=== PATIENT | female | born 1995 | race Caucasian/White ===

== ENCOUNTER 2017-07-10 10:28 | Outpatient (CLI) | payer OTHER ==
[~2017-07-10] VITALS: Ht 165.1 cm; Wt 58.8 kg
[2017-07-10 10:47] VITALS: BP 111/65; PULSE 69; Ht 165.1 cm; Wt 58.8 kg
[2017-07-10] MEDS ORDERED: PNV11TAB PO (10:49)
--- NOTE | 2017-07-10 11:48 | PN ---
Triage Information Date/Time Reason for visit: vomiting blood and numbness of feet Weeks of Gestation 26 weeks /Para Diabetes: none Hypertention: none Objective Vital Signs Date Time Temp Pulse Resp B/P Pulse Ox O2 Delivery O2 Flow Rate FiO2 07/10/17 10:47 98.7 69 111/65 Heart Rate: 130's Heart Rate Comments Appropriate for GA Contractions: None Disposition: Assessment/Plan Transfer to ED for furhter evaluation. KIERSTEN ROMO MD Jul 10, 2017 11:48
[2017-07-10] MEDS ORDERED: ONDA4TAB8 PO (21:52)
[2017-07-10] MEDS ORDERED: ACET325T33 PO (21:52)
== END 2017-07-10 12:00 | disposition home or self-care (01) ==
LOC: OBT 10:28 → L-D 10:28 → OBT 12:00
PROVIDERS: ATTEND Obstetrics & Gynecology
DX: O21.2 Late vomiting of pregnancy (principal); Z3A.26 26 weeks gestation of pregnancy
CPT/HCPCS: G0463

== ENCOUNTER 2017-07-10 12:11 | Emergency (ER) | payer OTHER ==
[~2017-07-10] VITALS: Ht 157.5 cm; Wt 58.5 kg
[~2017-07-10 12:11] MED LIST: PNV11TAB PO
[2017-07-10 12:16] VITALS: Ht 157.5 cm; Wt 58.5 kg
[2017-07-10] MEDS ORDERED: ACETAMINOPHEN 325 MG TAB PO STA (13:57)
--- NOTE | 2017-07-10 14:22 | RADRPT ---
PROCEDURE: US Abdomen. CLINICAL INDICATION: Abdominal pain TECHNIQUE: Multiple real-time images were acquired of the patient's abdomen and right lower quadra nt utilizing a high resolution transducer. COMPARISON: None FINDINGS: The appendix is not visualized. There is normal bowel seen in the right lower abdomen. No free fluid is identified. RPTAT: AA IMPRESSION: No ultrasound evidence of appendicitis. If there is a high clinical suspicion for appendicitis, MRI is recommended. .Paul Byers MD, MD Date Time Electronically viewed and signed by .Paul Byers MD, on 07/10/2017 14:22 .S/
--- NOTE | 2017-07-10 14:42 | RADRPT ---
PROCEDURE: US OB. CLINICAL INDICATION: Abdominal pain TECHNIQUE: Multiple sonographic images of the pelvis were obtained. Transabdominal imaging only w as performed. The images were reviewed on a PACS workstation. COMPARISON: No prior studies are available for comparison. FINDINGS: There is a single live intrauterine gestation. Cardiac activity is present with 152 beats per minut e. position is breech. Measurements were made in order to determine age. The results are as follows: BPD = 6.24 cm HC = 23.2 cm AC = 20.92 cm FL = 4.65 cm. Estimated gestational age of approximately 25 weeks 4 days. The estimated date of delivery is 10/19/2017. The EFW = 816.4 g, 16 %ile. The placenta is posterior. There is no evidence for an abruption or placenta previa. There are no adnexal masses. IMPRESSION: 1. Single live intrauterine gestation of approximately 25 weeks 4 days, by ultrasound criteria. 2. The estimated date of delivery is 10/19/2017. 3. The estimated weight is 816.4 g, 16 %ile. 4. Breech presentation. RPTAT: HH .Carol Cabrales MD, Date Time Electronically viewed and signed by .Carol Cabrales MD, on 07/10/2017 14:41 .G/
[2017-07-10 14:51] LABS: BASOPHIL # 0.1 10^3/ul (0.0-0.1); BASOPHILS % 0.3 % (0.0-2.0); EOSINOPHILS # 0.3 10^3/ul (0.0-0.5); EOSINOPHILS % 1.8 % (0.0-7.0); HEMATOCRIT 40.6 % (37.0-47.0); HEMOGLOBIN 13.4 g/dl (12.0-16.0); LYMPHOCYTES # 3.2 10^3/ul (0.8-2.9); LYMPHOCYTES % 21.8 % (15.0-51.0); MEAN CORPUSCULAR HEMOGLOBIN 28.8 pg (29.0-33.0); MEAN CORPUSCULAR VOLUME 87.3 fl (82.0-101.0); MEAN PLATELET VOLUME 9.5 fl (7.4-10.4); MONOCYTE # 0.8 10^3/ul (0.3-0.9); MONOCYTES % 5.1 % (0.0-11.0); NEUTROPHIL # 10.3 10^3/ul (1.6-7.5); NEUTROPHILS % 70.6 % (39.0-77.0); PLATELET COUNT 239 10^3/UL (140-415); RED BLOOD COUNT 4.65 10^6/ul (4.20-5.40); RED CELL DISTRIBUTION WIDTH 13.2 % (11.5-14.5); WHITE BLOOD COUNT 14.7 10^3/ul (4.8-10.8)
--- NOTE | 2017-07-10 14:56 | ERA ---
ER Documentation Chief Complaint Date/Time DATE: 07/10/17 TIME: 14:54 Chief Complaint 26 WEEKS , CLEAR BY OBGYN, C/O NAUSEA AND WEAK LEGS HPI Otherwise healthy 21-year-old female who is 26 weeks presenting with a chief complaint of nausea and lower abdominal pain. Patient symptoms started 38 hours ago. Patient has not taken any medications to relieve the symptoms. Denies any aggravating or alleviating factors. Denies recent travel, unilateral leg swelling, shortness of breath, chest pain, headache, fever, similar symptoms in past. Patient also complains of weak legs. Symptoms have been progressing over the past 2-3 weeks that have currently resolved. ROS All systems reviewed and are negative except as per history of present illness. Medications Home Meds Reported Medications [id number] ( 19) 1 Each Tablet, 1 TAB PO DAILY, TAB 07/10/17 Discontinued Scripts Ondansetron Hcl* (Zofran*) 4 Mg Tablet, 4 MG PO Q6H for NAUSEA AND/OR VOMITING, #30 TAB Prov:KATHERINE CARRANZA PA-C 07/10/17 Acetaminophen* (Tylenol*) 325 Mg Tablet, 1 TAB PO Q6 Y for PAIN AND OR ELEVATED TEMP, #20 TAB Prov:KATHERINE CARRANZA PA-C 07/10/17 Allergies Allergies: Coded Allergies: No Known Allergy (Unverified , 07/10/17) PMhx/Soc History of Surgery: Yes (RIGHT EAR SURGERY) Anesthesia Reaction: No Hx Neurological Disorder: No Hx Respiratory Disorders: No Hx Cardiac Disorders: No Hx Psychiatric Problems: No Hx Miscellaneous Medical Probl: No Hx Alcohol Use: No Hx Substance Use: No Hx Tobacco Use: No Smoking Status: Never smoker Physical Exam Vitals Physical Exam Const: Healthy appearing 21-year-old female no acute distress Head: Atraumatic Eyes: Normal Conjunctiva. PERRLA, EOMI bilaterally. Ophthalmoscope exam unremarkable. ENT: Normal External Ears, Nose and Mouth. Neck: Full range of motion..~ No meningismus. Resp: Clear to auscultation bilaterally Cardio: Regular rate and rhythm, no murmurs Abd: Soft. Mild right lower quadrant tenderness in McBurney point area. No rebound tenderness. Positive psoas sign. Negative obturator and Rovsing's signs. Skin: No petechiae or rashes Back: No midline or flank tenderness Ext: No cyanosis, or edema. Neur: Awake and alert. Neurovascularly intact. Patellar reflexes 2+ bilaterally. Psych: Normal Mood and Affect Results 24 hrs Laboratory Tests Test 07/10/17 14:38 07/10/17 21:29 White Blood Count 14.710^3/ul Red Blood Count 4.6510^6/ul Hemoglobin 13.4g/dl Hematocrit 40.6% Mean Corpuscular Volume 87.3fl Mean Corpuscular Hemoglobin 28.8pg Mean Corpuscular Hemoglobin Concent 33.0g/dl Red Cell Distribution Width 13.2% Platelet Count 80209^3/UL Mean Platelet Volume 9.5fl Neutrophils % 70.6% Lymphocytes % 21.8% Monocytes % 5.1% Eosinophils % 1.8% Basophils % 0.3% Nucleated Red Blood Cells % 0.0/100WBC Neutrophils # 10.310^3/ul Lymphocytes # 3.210^3/ul Monocytes # 0.810^3/ul Eosinophils # 0.310^3/ul Basophils # 0.110^3/ul Nucleated Red Blood Cells # 0.010^3/ul Prothrombin Time 12.3Sec Prothrombin Time Ratio 1.0 INR International Normalized Ratio 0.91 Activated Partial Thromboplast Time 25.3Sec Sodium Level 138mmol/L Potassium Level 4.5mmol/L Chloride Level 104mmol/L Carbon Dioxide Level 26mmol/L Anion Gap 13 Blood Urea Nitrogen 7mg/dl Creatinine 0.72mg/dl Glucose Level 78mg/dl Calcium Level 10.7mg/dl Total Bilirubin 0.2mg/dl Direct Bilirubin 0.00mg/dl Indirect Bilirubin 0.2mg/dl Aspartate Amino Transf (AST/SGOT) 23IU/L Alanine Aminotransferase (ALT/SGPT) 26IU/L Alkaline Phosphatase 73IU/L Total Protein 8.5g/dl Albumin 4.2g/dl Globulin 4.30g/dl Albumin/Globulin Ratio 0.97 Beta HCG, Quantitative 54024.0mIU/ml Bedside Urine pH (LAB) 5.5 Bedside Urine Protein (LAB) 1+ Bedside Urine Glucose (UA) Negative Bedside Urine Ketones (LAB) 2+ Bedside Urine Blood Negative Bedside Urine Nitrite (LAB) Negative Bedside Urine Leukocyte Esterase (L Trace Current Medications Medications (Trade) Dose Ordered Sig/Hilario Route PRN Reason Start Time Stop Time Status Last Admin Dose Admin Acetaminophen (Tylenol Tab) 650 mg ONCE STAT PO 07/10/17 13:57 07/10/17 14:00 DC 07/10/17 14:32 Procedures/MDM Otherwise healthy 21-year-old female presenting with her boyfriend with a chief complaint of right lower quadrant abdominal pain nausea and vomiting 1-2 days as described in history and physical examination. Laboratories were taken and the results were as follows: CBC: WBC 14.7. Neutrophils 10.3. CMP: Calcium 10.7. PT/PTT: Within normal limits Urinalysis: Urinalysis: Trace leukocyte esterase. 1+ protein. Ultrasounds were obtained, read by the radiologist given the following impression: 1. Single live intrauterine gestation of approximately 25 weeks 4 days, by ultrasound criteria. 2. The estimated date of delivery is 10/19/2017. 3. The estimated weight is 816.4 g, 16 %ile. 4. Breech presentation. Abdominal ultrasound: No ultrasound evidence of appendicitis. If there is a high clinical suspicion for appendicitis, MRI is recommended. Spoke to my attending Dr. Neil who has recommended MRI. My current differential diagnosis includes but is not limited to following: Gastroenteritis , appendicitis, abdominal pain of unknown origin, among others. This case is now being handed Dr. Neil. Departure Diagnosis: Primary Impression: Abdominal pain affecting Additional Impression: Abdominal pain Qualified Code: R10.31 - Right lower quadrant abdominal pain Condition: Stable Additional Instructions: This case has been handed over to ADRIANO Hoskins PA-C Jul 10, 2017 14:56
[2017-07-10 15:08] LABS: INR 0.91; PARTIAL THROMBOPLASTIN TIME 25.3 Sec (25.0-35.0); PROTIME 12.3 Sec (12.2-14.2)
[2017-07-10 15:10] LABS: ALBUMIN 4.2 g/dl (3.3-4.9); ALBUMIN/GLOBULIN RATIO 0.97; BILIRUBIN,INDIRECT 0.2 mg/dl (0-1.1); BILIRUBIN,TOTAL 0.2 mg/dl (0.2-1.3); CALCIUM 10.7 mg/dl (8.4-10.2); CREATININE 0.72 mg/dl (0.44-1.00); POTASSIUM 4.5 mmol/L (3.5-5.1); TOTAL PROTEIN 8.5 g/dl (6.1-8.1)
[2017-07-10 19:00] VITALS: TEMP 98.3
--- NOTE | 2017-07-10 21:15 | RADRPT ---
PROCEDURE: MRI abdomen and pelvis without contrast CLINICAL INDICATION: 27 weeks evaluate appendix right lower quadrant pain times 1 day TECHNIQUE: MRI of the abdomen and pelvis without contrast was performed. COMPARISON: OB ultrasound and right lower quadrant ultrasound of 07/10/2017 FINDINGS: There is a gravid uterus. No definite inflammatory change suggestive of acute appendicitis is seen i n the right pelvis/lower quadrant of the abdomen. There is appearance of minimal right hydronephrosi s. No abnormality seen in the visualized liver, spleen, gallbladder, pancreas, left kidney or adrena ls. No biliary dilatation is seen. No definite abnormality of the stomach is seen. No abdominal aort ic aneurysm is seen. No definite abnormality of the bowel is seen. There is appearance of a very sma ll umbilical hernia containing fat only. No abnormality seen in bilateral maternal adnexal regions. No free intrapelvic fluid is seen. No abnormality of the bladder is seen. IMPRESSION: No evidence of acute appendicitis. Minimal right hydronephrosis. Otherwise unremarkable examination. RPTAT: HJES .Maciel Harding MD, MD Date Time Electronically viewed and signed by .Maciel Harding MD, on 07/10/2017 21:15 .S/
[2017-07-10 21:22] LABS: URINE BLOOD (Dip) POC Negative (NEGATIVE)
[2017-07-10 21:50] VITALS: BP 122/78; PULSE 75; RESP 20
[2017-07-10] MEDS ORDERED: ONDA4TAB8 PO (21:52)
[2017-07-10] MEDS ORDERED: ACET325T33 PO (21:52)
== END 2017-07-10 22:02 | disposition home or self-care (01) ==
LOC: FTE 12:11
DX: O26.892 Other specified pregnancy related conditions, second trimester (principal); R10.31 Right lower quadrant pain; R10.2 Pelvic and perineal pain; Z3A.25 25 weeks gestation of pregnancy
CPT/HCPCS: 72195; 74181; 76705; 76801; 80053; 81003; 84702; 85025; 85610; 85730; 86900; 86901; Z7502; Z7610

== ENCOUNTER 2017-07-17 16:12 | Inpatient (IN) | payer OTHER ==
[~2017-07-17] VITALS: Ht 165.1 cm; Wt 60.3 kg
[~2017-07-17 16:12] MED LIST changes: +ACET325T33 PO; +ONDA4TAB8 PO
[2017-07-17 16:38] VITALS: BP 111/59; PULSE 64; RESP 18; Ht 165.1 cm; Wt 60.3 kg
[2017-07-17 18:10] LABS: BASOPHILS % 0.4 % (0.0-2.0); EOSINOPHILS # 0.3 10^3/ul (0.0-0.5); EOSINOPHILS % 3.2 % (0.0-7.0); HEMATOCRIT 33.6 % (37.0-47.0); LYMPHOCYTES # 3.2 10^3/ul (0.8-2.9); LYMPHOCYTES % 30.1 % (15.0-51.0); MEAN CORPUSCULAR HEMOGLOBIN 28.9 pg (29.0-33.0); MEAN CORPUSCULAR HGB CONC 32.7 g/dl (32.0-37.0); MEAN CORPUSCULAR VOLUME 88.2 fl (82.0-101.0); MEAN PLATELET VOLUME 9.7 fl (7.4-10.4); MONOCYTE # 0.7 10^3/ul (0.3-0.9); MONOCYTES % 6.7 % (0.0-11.0); NEUTROPHIL # 6.3 10^3/ul (1.6-7.5); NEUTROPHILS % 59.2 % (39.0-77.0); PLATELET COUNT 194 10^3/UL (140-415); RED BLOOD COUNT 3.81 10^6/ul (4.20-5.40); WHITE BLOOD COUNT 10.6 10^3/ul (4.8-10.8)
[2017-07-17 18:25] LABS: ADD UMIC YES; UR ASCORBIC ACID NEGATIVE (NEGATIVE); UR BILIRUBIN (Dip) NEGATIVE (NEGATIVE); UR BLOOD (Dip) NEGATIVE (NEGATIVE); UR CLARITY CLEAR (CLEAR); UR COLOR STRAW (YELLOW); UR GLUCOSE (Dip) NEGATIVE (NEGATIVE); UR KETONES (Dip) NEGATIVE (NEGATIVE); UR LEUKOCYTE ESTERASE (Dip) 1+ Leu/ul (NEGATIVE); UR NITRITE (Dip) NEGATIVE (NEGATIVE); UR RBC 1 /HPF (0-5); UR SPECIFIC GRAVITY (Dip) 1.002 (1.003-1.030); UR SQUAMOUS EPITHELIAL CELL FEW /HPF (FEW); UR TOTAL PROTEIN (Dip) NEGATIVE (NEGATIVE); UR UROBILINOGEN (Dip) NEGATIVE (NEGATIVE)
--- NOTE | 2017-07-17 19:18 | RADRPT ---
PROCEDURE: Renal US. CLINICAL INDICATION: Unable to urinate TECHNIQUE: Multiple sonographic images of the kidneys and bladder were obtained. The images were reviewed on a PACS workstation. COMPARISON: MRI of 07/10/2017 FINDINGS: Right kidney measures 9.5 cm and the left kidney 11 cm in length. There is minimal right hydronephro sis. No left hydronephrosis is seen. No renal mass or calculus is seen bilaterally. No abnormality o f the bladder is seen. Gravid uterus. IMPRESSION: Minimal right hydronephrosis. Otherwise unremarkable examination. RPTAT: HJES .Maciel Harding MD, Date Time Electronically viewed and signed by .Maciel Harding MD, on 07/17/2017 19:18 .S/
[2017-07-17] MEDS: SOD CHLORIDE 0.9% 1,000 ML IV SCH (20:46)
[2017-07-17] MEDS: CEFTRIAXONE 1 GM/50 ML (PMX) 50 ML IVPB SCH (21:13)
[2017-07-18] MEDS: SOD CHLORIDE 0.9% 1,000 ML IV SCH ×2 (04:42→23:14)
[2017-07-18] MEDS: PRENATAL VITAMIN PO SCH (09:10)
--- NOTE | 2017-07-18 20:42 | HP ---
Date/Time of Note Date/Time of Note DATE: 07/18/17 TIME: 20:33 OB - History Hx of Present Chief Complaint: right flank pain Estimated Due Date: Oct 15, 2017 : 1 Para: 0 Spontaneous : 0 Therapeutic : 0 Care: Limited Care Ultrasounds: Normal mid trimester US Obstetrical Complications: None Medical Complications: None Past Family/Social History * Past Medical, Surgical, Family and Obstetric Histories reviewed from chart. OB Admission Exam Vital Signs Vital Signs Vital Signs Date Time Temp Pulse Resp B/P Pulse Ox O2 Delivery O2 Flow Rate FiO2 07/17/17 16:38 98.2 64 18 111/59 98 Room Air Physical Exam HEENT: WNL Heart: Rhythm Normal Lungs: Clear Abdomen: WNL Extremities: Normal Reflexes: Normal Cervical Dilatation: None Heart Rate: 140's Last 72 hours Lab Results CBC & BMP 07/17/17 17:52 OB Assessment/Plan Reason for admission: other Other Assessment: R/o pyelonephritis Plan: Other Other plan: Urine culture IV KIERSTEN Kaye MD Jul 18, 2017 20:41
[2017-07-18] MEDS: CEFTRIAXONE 1 GM/50 ML (PMX) 50 ML IVPB SCH (20:46)
[2017-07-19] MEDS: PRENATAL VITAMIN PO SCH (11:04)
--- NOTE | 2017-07-19 18:24 | DS ---
Date/Time of Note Date/Time of Note DATE: 07/19/17 TIME: 18:23 Obstetrical Discharge Record Final Diagnosis Final Diagnosis: not delivered Other Final Diagnosis pyelonephritis Condition on Discharge Physical Assessment Voiding: Yes Bowel Movement: Yes Calf Tenderness: No Patient Condition: Stable KIERSTEN ROMO MD Jul 19, 2017 18:24
== END 2017-07-19 18:40 | disposition home or self-care (01) | DRG 781 ==
LOC: OBT 16:12 → L-D 16:13 → OBG 19:59 → OBT 19:59
PROVIDERS: ADMIT Obstetrics & Gynecology; ATTEND Obstetrics & Gynecology
DX: O23.00 Infections of kidney in pregnancy, unspecified trimester (principal); Z3A.00 Weeks of gestation of pregnancy not specified
CPT/HCPCS: 76775; 81001; 85025; 87086; G0463; J0696; J7030

== ENCOUNTER 2017-08-01 13:22 | Outpatient (CLI) | payer OTHER ==
[~2017-08-01] VITALS: Ht 165.1 cm; Wt 60.5 kg
[~2017-08-01 13:22] MED LIST changes: -ACET325T33 PO; -ONDA4TAB8 PO
[2017-08-01 13:45] VITALS: BP 110/65; PULSE 96; RESP 20; BMI 22.2
[2017-08-01 14:05] VITALS: Ht 165.1 cm; Wt 60.5 kg
[2017-08-01 14:06] VITALS: BP 110/65; PULSE 96; RESP 18
[2017-08-01 14:08] LABS: ADD UMIC YES; UR ASCORBIC ACID NEGATIVE (NEGATIVE); UR BACTERIA FEW /HPF (NONE SEEN); UR BILIRUBIN (Dip) NEGATIVE (NEGATIVE); UR BLOOD (Dip) NEGATIVE (NEGATIVE); UR CLARITY SLIGHTLY CLOUDY (CLEAR); UR COLOR STRAW (YELLOW); UR GLUCOSE (Dip) NEGATIVE (NEGATIVE); UR KETONES (Dip) NEGATIVE (NEGATIVE); UR LEUKOCYTE ESTERASE (Dip) 3+ Leu/ul (NEGATIVE); UR NITRITE (Dip) NEGATIVE (NEGATIVE); UR RBC 1 /HPF (0-5); UR SPECIFIC GRAVITY (Dip) 1.002 (1.003-1.030); UR SQUAMOUS EPITHELIAL CELL FEW /HPF (FEW); UR TOTAL PROTEIN (Dip) NEGATIVE (NEGATIVE); UR UROBILINOGEN (Dip) NEGATIVE (NEGATIVE)
--- NOTE | 2017-08-01 14:44 | RADRPT ---
PROCEDURE: US OB biophysical profile. CLINICAL INDICATION: decreased movements, PTL TECHNIQUE: Multiple sonographic images of the pelvis were obtained. The images were reviewed on a PACS workstation. COMPARISON: 07/10/17 FINDINGS: There is a single viable intrauterine gestation. Cardiac activity is present with 140 beats per min ozzy. There is a breech presentation. The placenta is posterior. There is no evidence of placental abruption. There is a normal amount of amniotic fluid with an KAYLI = 13.5 cm. Biophysical profile: movement 2/2 tone 2/2. breathing 2/2 KAYLI 2/2 Total 05/22 RPTAT: AA . IMPRESSION: Normal biophysical profile. . .Paul Byers MD, MD Date Time Electronically viewed and signed by .Paul Byers MD, MD on 08/01/2017 14:44 .S/
--- NOTE | 2017-08-01 15:45 | RADRPT ---
PROCEDURE: Limited obstetric ultrasound CLINICAL INDICATION: Pain TECHNIQUE: Multiple transverse and longitudinal grayscale images of the pelvis were obtained ndiaye sabdominally and transvaginally.. COMPARISON: same day FINDINGS: The cervix is closed with a length of 3.4 cm. There is a single viable intrauterine gestation. Cardiac activity is present with 144 beats per min che[place]huevi. There is a breech , head maternal left presentation. The placenta is posterior. There is no evidence for an abruption or placenta previa. RPTAT: AA IMPRESSION: Cervix length measures 3.4 cm. .Paul Byers MD, Date Time Electronically viewed and signed by .Paul Byers MD, on 08/01/2017 15:45 .S/
--- NOTE | 2017-08-01 16:09 | TRIAGE ---
OB Triage Datetime Report Generated by CPN: 08/01/2017 16:08 Datetime: 08/01/2017 15:30 Stage of : OB Triage Maternal Assessment Level of Consciousness: Fully Conscious Labor Evaluation Frequency: NONE Monitor Mode: External Resting Tone [place]: Relaxed Heart Rate FHR Baseline Rate: 145 Monitor Mode: External US Variability: Moderate 6-25 bpm Accelerations: 15X15 Decelerations: None Pain Assessment Pain Scale: 7 Pain Goal: 3 Vaginal Exam Membrane Status: Intact Vaginal Bleeding: None Datetime: 08/01/2017 14:30 Stage of : OB Triage Maternal Assessment Level of Consciousness: Fully Conscious Labor Evaluation Frequency: NONE Monitor Mode: External Resting Tone [place]: Relaxed Heart Rate FHR Baseline Rate: 145 Monitor Mode: External US Variability: Moderate 6-25 bpm Accelerations: 15X15 Decelerations: None Category: Category I Pain Assessment Pain Scale: 7 Pain Goal: 3 Vaginal Exam Membrane Status: Intact Vaginal Bleeding: None Datetime: 08/01/2017 13:38 Stage of : OB Triage Assessment Type: Triage Maternal Assessment Level of Consciousness: Fully Conscious DTR's/Clonus: DTRs 2+; No Clonus Headache: Denies Blurred Vision: No Respiratory Effort: Unlabored; Regular Rhythm; Equal Expansion Breath Sounds, Left: Clear and Equal Breath Sounds, Right: Clear and Equal Nausea/Vomiting: Denies RUQ Epigastric Pain: Denies Lower Extremities Edema: None Degree: None Upper Extremities Edema: None Degree: None Facial Edema: None Temperature Route: Axillary Fall Risk Assessment History of Falling: (0) No Secondary Diagnosis: (0) No Ambulatory Aid: (0) Bedrest/Nurse Assist IV Therapy: (0) No Gait: (0) Normal/Bedrest/Immobile Mental Status: (0) Oriented to Own Ability Fall Score: 0 Fall Risk Score Definition: No Risk: No action required Datetime: 08/01/2017 13:35 Pain Assessment Pain Scale: 7 Pain Presence: Constant Pain Type: Dull Pain Location: Abdomen Pain Goal: 2 Pain Relief Measures: Comfort Measures Datetime: 08/01/2017 13:33 Monitor Mode: External Monitor Mode: External US Datetime: 07/19/2017 18:53 Time of Arrival: 08/01/2017 13:15 EGA: 29.2 Arrived By: Ambulatory Arrived From: Home Chief Complaint: CONTRACTIONS X2; WEAKNESS AND LIGAMENT PAIN ON LEFT SIDE Movement: Present Contractions: Occasional Rupture of Membranes: Denies Vaginal Bleeding: None Vaginal Discharge: Denies Recent Sexual Intercouse: Denies Abdominal Trauma: Not Applicable Patient Complaints: None Time Provider Notified: 08/01/2017 14:40 Provider Notified: DELSHAD Initial Plan: NST/UA/CVL Datetime: 07/19/2017 08:33 Labor Evaluation Frequency: 1 with irritability Monitor Mode: External Quality: Mild Resting Tone [place]: Relaxed Contraction Comments: pt denies feeling cramping , contractions, pain, leaking of fluid or blood f rom vagina Heart Rate FHR Baseline Rate: 130 Monitor Mode: External US FHR Baseline Changes: No Baseline Change Variability: Moderate 6-25 bpm Accelerations: 15X15 Decelerations: None Category: Category I Datetime: 07/19/2017 07:50 Pain Presence: None/Denies Datetime: 07/19/2017 07:28 Assessment Type: Ongoing Assessment Maternal Assessment Level of Consciousness: Fully Conscious DTR's/Clonus: DTRs 2+; No Clonus Headache: Denies Blurred Vision: No Respiratory Effort: Unlabored; Regular Rhythm; Equal Expansion Breath Sounds, Left: Clear and Equal Breath Sounds, Right: Clear and Equal Nausea/Vomiting: Denies RUQ Epigastric Pain: Denies Facial Edema: None Fall Risk Assessment History of Falling: (0) No Secondary Diagnosis: (0) No Ambulatory Aid: (0) Bedrest/Nurse Assist IV Therapy: (20) Yes Gait: (0) Normal/Bedrest/Immobile Mental Status: (0) Oriented to Own Ability Fall Score: 20 Fall Risk Score Definition: No Risk: No action required Datetime: 07/18/2017 21:36 Labor Evaluation Frequency: 0 Monitor Mode: External Resting Tone [place]: Relaxed Heart Rate FHR Baseline Rate: 145 Monitor Mode: External US Variability: Moderate 6-25 bpm Accelerations: 15X15 Decelerations: Variable Category: Category II Comments: nst done reactive strip. Pain Presence: None/Denies Datetime: 07/18/2017 20:48 Monitor Mode: External Contraction Comments: placed nst started. Monitor Mode: External US Comments: placed nst started. Datetime: 07/18/2017 19:32 Stage of : Antepartum Assessment Type: Ongoing Assessment Maternal Assessment Level of Consciousness: Fully Conscious DTR's/Clonus: DTRs 2+; No Clonus Headache: Denies Blurred Vision: No Respiratory Effort: Unlabored; Regular Rhythm; Equal Expansion Breath Sounds, Left: Clear and Equal Breath Sounds, Right: Clear and Equal Nausea/Vomiting: Denies RUQ Epigastric Pain: Denies Lower Extremities Edema: None Degree: None Upper Extremities Edema: None Degree: None Facial Edema: None Temperature Route: Oral Fall Risk Assessment History of Falling: (0) No Secondary Diagnosis: (0) No Ambulatory Aid: (0) Bedrest/Nurse Assist IV Therapy: (0) No Gait: (0) Normal/Bedrest/Immobile Mental Status: (0) Oriented to Own Ability Fall Score: 0 Fall Risk Score Definition: No Risk: No action required Pain Presence: None/Denies Datetime: 07/18/2017 18:11 Stage of : Antepartum Pain Assessment Pain Scale: 0 Pain Presence: Intermittent Pain Type: Ache Pain Location: Right Flank Pain Goal: 2 Pain Relief Measures: Comfort Measures Datetime: 07/18/2017 17:39 Stage of : Antepartum Pain Assessment Pain Scale: 0 Pain Presence: Intermittent Pain Type: Ache Pain Location: Right Flank Pain Goal: 2 Pain Relief Measures: Comfort Measures Datetime: 07/18/2017 16:00 Stage of : Antepartum Pain Assessment Pain Scale: 0 Pain Presence: Intermittent Pain Type: Ache Pain Location: Right Flank Pain Goal: 2 Pain Relief Measures: Comfort Measures Datetime: 07/18/2017 15:07 Stage of : Antepartum Pain Assessment Pain Scale: 0 Pain Presence: Intermittent Pain Type: Ache Pain Location: Right Flank Pain Goal: 4 Pain Relief Measures: Comfort Measures Datetime: 07/18/2017 14:00 Stage of : Antepartum Pain Assessment Pain Scale: 0 Pain Presence: Intermittent Pain Type: Ache Pain Location: Right Flank Pain Goal: 4 Pain Relief Measures: Comfort Measures Datetime: 07/18/2017 13:16 Stage of : Antepartum Pain Assessment Pain Scale: 0 Pain Presence: Intermittent Pain Type: Ache Pain Location: Right Flank Pain Goal: 5 Pain Relief Measures: Comfort Measures Datetime: 07/18/2017 12:09 Stage of : Antepartum Pain Assessment Pain Scale: 4 Pain Presence: Intermittent Pain Type: Ache Pain Location: Right Flank Pain Goal: 0 Pain Relief Measures: Comfort Measures Datetime: 07/18/2017 10:36 Stage of : Antepartum Labor Evaluation Frequency: 0 Monitor Mode: External Pattern: Normal: <= 5 Contractions in 10 Minutes Resting Tone [place]: Relaxed Heart Rate FHR Baseline Rate: 135 Variability: Moderate 6-25 bpm Accelerations: 15X15 Decelerations: Variable Category: Category II Pain Presence: Intermittent Pain Type: Ache Pain Location: Right Flank Pain Relief Measures: Comfort Measures Datetime: 07/18/2017 10:18 Stage of : Antepartum Comments: NST Pain Presence: Intermittent Pain Type: Ache Pain Location: Right Flank Pain Relief Measures: Comfort Measures Datetime: 07/18/2017 09:10 Stage of : Antepartum Pain Presence: Intermittent Pain Type: Ache Pain Location: Right Flank Pain Relief Measures: Comfort Measures Datetime: 07/18/2017 08:31 Stage of : Antepartum Pain Presence: Intermittent Pain Type: Ache Pain Location: Right Flank Pain Relief Measures: Comfort Measures Datetime: 07/18/2017 07:40 Stage of : Antepartum Assessment Type: Ongoing Assessment Maternal Assessment Level of Consciousness: Fully Conscious DTR's/Clonus: DTRs 2+; No Clonus Headache: Denies Blurred Vision: No Respiratory Effort: Unlabored; Regular Rhythm; Equal Expansion Breath Sounds, Left: Clear and Equal Breath Sounds, Right: Clear and Equal Nausea/Vomiting: Denies RUQ Epigastric Pain: Denies Lower Extremities Edema: None Degree: None Upper Extremities Edema: None Degree: None Facial Edema: None Temperature Route: Oral Fall Risk Assessment History of Falling: (0) No Secondary Diagnosis: (0) No Ambulatory Aid: (0) Bedrest/Nurse Assist IV Therapy: (0) No Gait: (0) Normal/Bedrest/Immobile Mental Status: (0) Oriented to Own Ability Fall Score: 0 Fall Risk Score Definition: No Risk: No action required Monitor Mode: NST Q SHIFT Pain Assessment Pain Scale: 0 Pain Presence: Constant Pain Type: Ache Pain Location: Right Flank Pain Goal: 7 Pain Relief Measures: Comfort Measures Datetime: 07/18/2017 07:17 Stage of : Antepartum Datetime: 07/18/2017 04:43 Stage of : Antepartum Temperature Route: Oral Pain Assessment Pain Scale: 0 Pain Presence: None/Denies Pain Type: N/A Datetime: 07/18/2017 04:41 Stage of : Antepartum Temperature Route: Oral Datetime: 07/17/2017 23:00 Stage of : Antepartum Pain Assessment Pain Scale: 0 Pain Assessment Comments: pt denies feeling pain Datetime: 07/17/2017 21:38 Comments: NST completed, monitor off Comments: off Datetime: 07/17/2017 21:37 Stage of : Antepartum Maternal Assessment Level of Consciousness: Fully Conscious DTR's/Clonus: No Clonus Headache: Denies Blurred Vision: No Respiratory Effort: Unlabored Breath Sounds, Left: Clear and Equal Breath Sounds, Right: Clear and Equal Nausea/Vomiting: Denies RUQ Epigastric Pain: Denies Facial Edema: None Labor Evaluation Frequency: 0 Resting Tone [place]: Relaxed Contraction Comments: abdomen soft on palpation Heart Rate FHR Baseline Rate: 135 Monitor Mode: External US Variability: Moderate 6-25 bpm Accelerations: 10X10 Decelerations: None Category: Category I Pain Assessment Pain Scale: 0 Pain Presence: None/Denies Pain Type: N/A Pain Assessment Comments: at this time Vaginal Exam Membrane Status: Intact Datetime: 07/17/2017 21:35 Assessment Type: Admission Assessment Maternal Assessment Level of Consciousness: Fully Conscious DTR's/Clonus: DTRs 2+; No Clonus Headache: Denies Blurred Vision: No Respiratory Effort: Unlabored; Regular Rhythm; Equal Expansion Breath Sounds, Left: Clear and Equal Breath Sounds, Right: Clear and Equal Nausea/Vomiting: Denies RUQ Epigastric Pain: Denies Lower Extremities Edema: None Degree: None Upper Extremities Edema: None Degree: None Facial Edema: None Fall Risk Assessment History of Falling: (0) No Secondary Diagnosis: (0) No Ambulatory Aid: (0) Bedrest/Nurse Assist IV Therapy: (20) Yes Gait: (0) Normal/Bedrest/Immobile Mental Status: (0) Oriented to Own Ability Fall Score: 20 Fall Risk Score Definition: No Risk: No action required Comment: Datetime: 07/17/2017 21:17 Time of Arrival: 07/17/2017 21:18 EGA: 27.1 Arrived By: Ambulatory Datetime: 07/17/2017 21:12 Stage of : Antepartum Temperature Route: Oral Monitor Mode: External US Comments: applied Datetime: 07/17/2017 20:45 Stage of : OB Triage Datetime: 07/17/2017 20:30 Labor Evaluation Frequency: 0 Monitor Mode: External Duration (sec)2399: 0 Pattern: Normal: <= 5 Contractions in 10 Minutes Heart Rate FHR Baseline Rate: 145 FHR Baseline Changes: No Baseline Change Variability: Moderate 6-25 bpm Accelerations: 10X10 Decelerations: Variable Datetime: 07/17/2017 19:34 Stage of : OB Triage Maternal Assessment Level of Consciousness: Fully Conscious Headache: Denies Blurred Vision: No Respiratory Effort: Unlabored; Regular Rhythm; Equal Expansion Nausea/Vomiting: Denies RUQ Epigastric Pain: Denies Facial Edema: None Fall Risk Assessment History of Falling: (0) No Secondary Diagnosis: (0) No Ambulatory Aid: (0) Bedrest/Nurse Assist IV Therapy: (0) No Gait: (0) Normal/Bedrest/Immobile Mental Status: (0) Oriented to Own Ability Fall Score: 0 Fall Risk Score Definition: No Risk: No action required Datetime: 07/17/2017 19:30 Labor Evaluation Frequency: 0 Monitor Mode: External Duration (sec)2399: 0 Pattern: Normal: <= 5 Contractions in 10 Minutes Heart Rate FHR Baseline Rate: 145 FHR Baseline Changes: No Baseline Change Variability: Moderate 6-25 bpm Accelerations: 10X10 Decelerations: Variable Datetime: 07/17/2017 18:30 Stage of : OB Triage Maternal Assessment Level of Consciousness: Fully Conscious Labor Evaluation Frequency: 0 Monitor Mode: External Resting Tone [place]: Relaxed Heart Rate FHR Baseline Rate: 140 Monitor Mode: External US Variability: Moderate 6-25 bpm Accelerations: 10X10 Decelerations: AGA Pain Assessment Pain Scale: 2 Pain Goal: 3 Vaginal Exam Membrane Status: Intact Vaginal Bleeding: None Datetime: 07/17/2017 17:30 Stage of : OB Triage Maternal Assessment Level of Consciousness: Fully Conscious Labor Evaluation Frequency: 0 Monitor Mode: External Resting Tone [place]: Relaxed Heart Rate FHR Baseline Rate: 140 Monitor Mode: External US Variability: Moderate 6-25 bpm Accelerations: 10X10 Decelerations: AGA Pain Assessment Pain Scale: 2 Pain Goal: 3 Vaginal Exam Membrane Status: Intact Vaginal Bleeding: None Datetime: 07/17/2017 16:34 Assessment Type: Triage Maternal Assessment Level of Consciousness: Fully Conscious DTR's/Clonus: DTRs 2+; No Clonus Headache: Denies Blurred Vision: No Respiratory Effort: Unlabored; Regular Rhythm; Equal Expansion Breath Sounds, Left: Clear and Equal Breath Sounds, Right: Clear and Equal Nausea/Vomiting: Denies RUQ Epigastric Pain: Denies Lower Extremities Edema: None Degree: None Upper Extremities Edema: None Degree: None Facial Edema: None Fall Risk Assessment History of Falling: (0) No Secondary Diagnosis: (0) No Ambulatory Aid: (0) Bedrest/Nurse Assist IV Therapy: (0) No Gait: (0) Normal/Bedrest/Immobile Mental Status: (0) Oriented to Own Ability Fall Score: 0 Fall Risk Score Definition: No Risk: No action required Datetime: 07/17/2017 16:30 Monitor Mode: External Monitor Mode: External US Datetime: 07/17/2017 16:27 Time of Arrival: 07/17/2017 15:55 EGA: 27.1 Arrived By: Ambulatory Arrived From: Home Chief Complaint: PT HERE C/O NOT BEING ABLE TO URINATE Movement: Present Contractions: Denies/Absent Rupture of Membranes: Denies Vaginal Bleeding: None Vaginal Discharge: Denies Recent Sexual Intercouse: Yes Abdominal Trauma: Not Applicable Patient Complaints: None Time Provider Notified: 07/17/2017 17:25 Provider Notified: DELSHAD Initial Plan: UA/CBC/U/S RENAL Datetime: 07/10/2017 11:37 Stage of : OB Triage Datetime: 07/10/2017 10:44 Stage of : OB Triage Assessment Type: Triage EGA: 26.1 Maternal Assessment Level of Consciousness: Fully Conscious DTR's/Clonus: DTRs 2+; No Clonus Headache: Denies Blurred Vision: No Respiratory Effort: Unlabored; Regular Rhythm; Equal Expansion Breath Sounds, Left: Clear and Equal Breath Sounds, Right: Clear and Equal Nausea/Vomiting: Denies RUQ Epigastric Pain: Denies Facial Edema: None Temperature Route: Axillary Fall Risk Assessment History of Falling: (0) No Secondary Diagnosis: (0) No Ambulatory Aid: (0) Bedrest/Nurse Assist IV Therapy: (0) No Gait: (0) Normal/Bedrest/Immobile Mental Status: (0) Oriented to Own Ability Fall Score: 0 Fall Risk Score Definition: No Risk: No action required Labor Evaluation Frequency: 0 Monitor Mode: External Pattern: Normal: <= 5 Contractions in 10 Minutes Resting Tone [place]: Relaxed Heart Rate FHR Baseline Rate: 145 Monitor Mode: External US Variability: Moderate 6-25 bpm Accelerations: 10X10 Decelerations: None Category: Category I Pain Assessment Pain Scale: 8 Pain Presence: Intermittent Pain Type: Ache Pain Location: Coccyx Pain Goal: 3 Pain Relief Measures: Comfort Measures Datetime: 07/10/2017 10:42 Time of Arrival: 07/10/2017 10:20 Arrived By: Ambulatory Arrived From: Home Chief Complaint: C/O VOMITING BLOOD THIS MORNING (X3), NO DIARRHEA, NUMBNESS IN FEET SINCE LAST N IGHT Movement: Present Contractions: Denies/Absent Rupture of Membranes: Denies Vaginal Bleeding: None Vaginal Discharge: Denies Recent Sexual Intercouse: Denies Abdominal Trauma: Not Applicable Patient Complaints: Vomiting Time Provider Notified: 07/10/2017 10:40 Provider Notified: DEMETRIUS Initial Plan: MONITOR,
--- NOTE | 2017-08-01 18:48 | PN ---
Triage Information Date/Time 08/01/2017 Reason for visit: Uterine contractions Weeks of Gestation 29 weeks and 4 days /Para Diabetes: none Hypertention: none Additional information 21 years old with IUP at 29 weeks and 4 days presented with complaint of contractions x 1 yesterday and Cx x 1 today. Denies any LOF, vaginal bleeding or decreased movement. She was Hospitalized last week for pyelonephritis in the hospital and received IV abx and was then discharged home. She has not been on suppresive therapy and denies any symptoms as well. Denies any urinary problems. Denies any fever or chills. Denies any vaginal bleeding, LOF or decreased movement. Objective Vital Signs Date Time Temp Pulse Resp B/P Pulse Ox O2 Delivery O2 Flow Rate FiO2 08/01/17 14:06 98.5 96 18 110/65 Room Air Heart Rate: 130's Contractions: None Exam GA: A&O, NAD Abdomen: Soft, Non tender, Fundal Height consistent with GA NST: Cat1 No contractions seen on the monitor CL: 3.4 cm BPP: 8/8 KAYLI: 13.5 Results/Medications Results 24 hrs Laboratory Tests Test 08/01/17 13:39 Urine Color STRAW Urine Clarity SLIGHTLY CLOUDY A Urine pH 7.0 Urine Specific [place] 1.002 L Urine Ketones NEGATIVE Urine Nitrite NEGATIVE Urine Bilirubin NEGATIVE Urine Urobilinogen NEGATIVE Urine Leukocyte Esterase 3+ H Urine Microscopic RBC 1 Urine Microscopic WBC 7 H Urine Squamous Epithelial Cells FEW Urine Bacteria FEW A Urine Hemoglobin NEGATIVE Urine Glucose NEGATIVE Urine Total Protein NEGATIVE Disposition: Discharge Assessment/Plan IUP at 29 weeks and 4 days History of pyelonephritis, s./p treatment. Not on suppressive therapy no urinary symptoms No evidence of PTL Recommended to take Keflex for supperssive therapy Patient was discharged to Dr. Lawson office for follow up Plans to do follow up urine culture in office ( Per Dr. Lawson's order to nursing staff) labor precaution and kick counts discussed Follow up as scheduled with office BERKLEY VALENZUELA MD Aug 01, 2017 18:48
== END 2017-08-01 16:37 | disposition home or self-care (01) ==
LOC: OBT 13:22 → L-D 13:22 → OBT 16:37
PROVIDERS: ATTEND Obstetrics & Gynecology
DX: O62.9 Abnormality of forces of labor, unspecified (principal); Z3A.29 29 weeks gestation of pregnancy
CPT/HCPCS: 76817; 76818; 81001; Z7500; G0463

== ENCOUNTER 2017-08-06 11:51 | Outpatient (CLI) | payer OTHER ==
[~2017-08-06] VITALS: Ht 165.1 cm; Wt 62.8 kg
[2017-08-06 12:06] VITALS: BP 109/66; PULSE 83; Ht 165.1 cm; Wt 62.8 kg
[2017-08-06] MEDS ORDERED: LACTATED RINGER'S 1,000 ML IV SCH (12:30)
[2017-08-06] MEDS ORDERED: LACTATED RINGER'S 500 ML IV ONE (12:30)
[2017-08-06 13:04] LABS: BASOPHIL # 0.1 10^3/ul (0.0-0.1); BASOPHILS % 0.5 % (0.0-2.0); EOSINOPHILS # 0.2 10^3/ul (0.0-0.5); HEMATOCRIT 33.2 % (37.0-47.0); HEMOGLOBIN 11.3 g/dl (12.0-16.0); LYMPHOCYTES # 2.9 10^3/ul (0.8-2.9); LYMPHOCYTES % 24.5 % (15.0-51.0); MEAN CORPUSCULAR HEMOGLOBIN 29.7 pg (29.0-33.0); MEAN CORPUSCULAR VOLUME 87.1 fl (82.0-101.0); MONOCYTE # 0.8 10^3/ul (0.3-0.9); NEUTROPHIL # 7.7 10^3/ul (1.6-7.5); NEUTROPHILS % 65.7 % (39.0-77.0); PLATELET COUNT 216 10^3/UL (140-415); RED BLOOD COUNT 3.81 10^6/ul (4.20-5.40); RED CELL DISTRIBUTION WIDTH 12.6 % (11.5-14.5); WHITE BLOOD COUNT 11.8 10^3/ul (4.8-10.8)
[2017-08-06 13:21] LABS: ALBUMIN 3.5 g/dl (3.3-4.9); ALBUMIN/GLOBULIN RATIO 1.09; CALCIUM 9.4 mg/dl (8.4-10.2); CREATININE 0.62 mg/dl (0.44-1.00); POTASSIUM 4.1 mmol/L (3.5-5.1); TOTAL PROTEIN 6.7 g/dl (6.1-8.1)
[2017-08-06 16:22] LABS: ADD UMIC YES; UR ASCORBIC ACID NEGATIVE (NEGATIVE); UR BILIRUBIN (Dip) NEGATIVE (NEGATIVE); UR BLOOD (Dip) NEGATIVE (NEGATIVE); UR CLARITY CLEAR (CLEAR); UR COLOR YELLOW (YELLOW); UR GLUCOSE (Dip) NEGATIVE (NEGATIVE); UR KETONES (Dip) NEGATIVE (NEGATIVE); UR LEUKOCYTE ESTERASE (Dip) 3+ Leu/ul (NEGATIVE); UR NITRITE (Dip) NEGATIVE (NEGATIVE); UR RBC 6 /HPF (0-5); UR SPECIFIC GRAVITY (Dip) 1.004 (1.003-1.030); UR SQUAMOUS EPITHELIAL CELL FEW /HPF (FEW); UR TOTAL PROTEIN (Dip) NEGATIVE (NEGATIVE); UR UROBILINOGEN (Dip) NEGATIVE (NEGATIVE)
--- NOTE | 2017-08-06 18:13 | QN ---
Documentation Comment iup 30 weeks co fo sore throat vss exam wnl labs wnl a/p iup 30 weeks sore throat resolved dc home false labor HARINDER GREEN MD Aug 06, 2017 18:13
--- NOTE | 2017-08-06 19:22 | TRIAGE ---
OB Triage Datetime Report Generated by CPN: 08/06/2017 19:21 Datetime: 08/06/2017 17:25 Stage of : OB Triage Datetime: 08/06/2017 16:29 Labor Evaluation Frequency: 0 Monitor Mode: External Resting Tone [place]: Relaxed Heart Rate FHR Baseline Rate: 135 Monitor Mode: External US Variability: Moderate 6-25 bpm Accelerations: 10X10 Decelerations: None Category: Category I Pain Assessment Pain Scale: 0 Pain Presence: None/Denies Pain Type: N/A Pain Goal: 3 Pain Relief Measures: Comfort Measures Datetime: 08/06/2017 16:23 Stage of : OB Triage Datetime: 08/06/2017 15:22 Labor Evaluation Frequency: 0 Monitor Mode: External Resting Tone [place]: Relaxed Heart Rate FHR Baseline Rate: 135 Monitor Mode: External US Variability: Moderate 6-25 bpm Accelerations: 10X10 Decelerations: None Category: Category I Pain Assessment Pain Scale: 0 Pain Presence: None/Denies Pain Type: N/A Pain Goal: 3 Pain Relief Measures: Comfort Measures Datetime: 08/06/2017 14:25 Labor Evaluation Frequency: 0 Monitor Mode: External Resting Tone [place]: Relaxed Heart Rate FHR Baseline Rate: 135 Monitor Mode: External US Variability: Moderate 6-25 bpm Accelerations: 10X10 Decelerations: None Category: Category I Pain Assessment Pain Scale: 0 Pain Presence: None/Denies Pain Type: N/A Pain Goal: 3 Pain Relief Measures: Comfort Measures Datetime: 08/06/2017 13:20 Labor Evaluation Frequency: X1 Monitor Mode: External Duration (sec)2399: 50 Quality: Mild Resting Tone [place]: Relaxed Heart Rate FHR Baseline Rate: 140 Monitor Mode: External US Variability: Moderate 6-25 bpm Accelerations: 10X10 Decelerations: None Category: Category I Pain Assessment Pain Scale: 0 Pain Presence: None/Denies Pain Type: N/A Pain Goal: 3 Pain Relief Measures: Comfort Measures Datetime: 08/06/2017 12:21 Stage of : OB Triage Datetime: 08/06/2017 12:09 Stage of : OB Triage Datetime: 08/06/2017 12:02 Stage of : OB Triage Assessment Type: Triage Maternal Assessment Level of Consciousness: Fully Conscious DTR's/Clonus: DTRs 2+; No Clonus Headache: Denies Blurred Vision: No Respiratory Effort: Unlabored; Regular Rhythm; Equal Expansion Breath Sounds, Left: Clear and Equal Breath Sounds, Right: Clear and Equal Nausea/Vomiting: Denies RUQ Epigastric Pain: Denies Facial Edema: None Temperature Route: Axillary Fall Risk Assessment History of Falling: (0) No Secondary Diagnosis: (0) No Ambulatory Aid: (0) Bedrest/Nurse Assist IV Therapy: (0) No Gait: (0) Normal/Bedrest/Immobile Mental Status: (0) Oriented to Own Ability Fall Score: 0 Fall Risk Score Definition: No Risk: No action required Labor Evaluation Frequency: 0 Monitor Mode: External Resting Tone [place]: Relaxed Heart Rate FHR Baseline Rate: 145 Monitor Mode: External US Variability: Moderate 6-25 bpm Decelerations: None Category: Category I Pain Assessment Pain Scale: 0 Pain Presence: None/Denies Pain Type: N/A Pain Goal: 3 Pain Relief Measures: Comfort Measures Datetime: 08/06/2017 12:01 Time of Arrival: 08/06/2017 11:40 EGA: 30.0 Arrived By: Ambulatory Arrived From: Home Chief Complaint: C/O SORE THROAT AND SWALLOWING VOMIT THIS AM. DENIES BLEEDING, LEAKING OR UC'S Movement: Present Contractions: Denies/Absent Rupture of Membranes: Denies Vaginal Discharge: Denies Recent Sexual Intercouse: Denies Abdominal Trauma: Not Applicable Patient Complaints: Nausea; Vomiting Time Provider Notified: 08/06/2017 12:21 Provider Notified: DELSHAD Initial Plan: MONITOR, CBC, CMP, AMYLASE, LIPASE, U/A Datetime: 08/01/2017 13:38 Fall Score: 0 Fall Risk Score Definition: No Risk: No action required Datetime: 07/19/2017 18:53 EGA: 29.2 Datetime: 07/19/2017 07:28 Fall Score: 20 Fall Risk Score Definition: No Risk: No action required Datetime: 07/18/2017 19:32 Fall Score: 0 Fall Risk Score Definition: No Risk: No action required Datetime: 07/18/2017 07:40 Fall Score: 0 Fall Risk Score Definition: No Risk: No action required Datetime: 07/17/2017 21:35 Fall Score: 20 Fall Risk Score Definition: No Risk: No action required Datetime: 07/17/2017 21:17 EGA: 27.1 Datetime: 07/17/2017 19:34 Fall Score: 0 Fall Risk Score Definition: No Risk: No action required Datetime: 07/17/2017 16:34 Fall Score: 0 Fall Risk Score Definition: No Risk: No action required Datetime: 07/17/2017 16:27 EGA: 27.1 Datetime: 07/10/2017 10:44 EGA: 26.1 Fall Score: 0 Fall Risk Score Definition: No Risk: No action required
== END 2017-08-06 17:45 | disposition home or self-care (01) ==
LOC: OBT 11:51 → L-D 11:51 → OBT 17:45
PROVIDERS: ATTEND Obstetrics & Gynecology
DX: O26.893 Other specified pregnancy related conditions, third trimester (principal); J02.9 Acute pharyngitis, unspecified; O47.03 False labor before 37 completed weeks of gestation, third trimester; Z3A.30 30 weeks gestation of pregnancy
CPT/HCPCS: 36415; 80053; 81001; 82150; 83690; 85025; 96360; 96361; J7120; Z7500; G0463

== ENCOUNTER 2017-09-09 19:36 | Outpatient (CLI) | payer OTHER ==
[~2017-09-09] VITALS: Ht 165.1 cm; Wt 66.4 kg
[2017-09-09 19:41] VITALS: Ht 165.1 cm; Wt 66.4 kg
[2017-09-09 19:59] VITALS: BP 113/63; PULSE 77; RESP 18
[2017-09-09 21:22] LABS: BASOPHIL # 0.1 10^3/ul (0.0-0.1); BASOPHILS % 0.4 % (0.0-2.0); EOSINOPHILS # 0.4 10^3/ul (0.0-0.5); HEMATOCRIT 35.1 % (37.0-47.0); HEMOGLOBIN 11.7 g/dl (12.0-16.0); LYMPHOCYTES # 3.6 10^3/ul (0.8-2.9); MEAN CORPUSCULAR HGB CONC 33.3 g/dl (32.0-37.0); MEAN CORPUSCULAR VOLUME 87.1 fl (82.0-101.0); MEAN PLATELET VOLUME 10.6 fl (7.4-10.4); MONOCYTE # 0.9 10^3/ul (0.3-0.9); MONOCYTES % 6.4 % (0.0-11.0); NEUTROPHIL # 8.9 10^3/ul (1.6-7.5); NEUTROPHILS % 63.6 % (39.0-77.0); PLATELET COUNT 213 10^3/UL (140-415); RED BLOOD COUNT 4.03 10^6/ul (4.20-5.40); RED CELL DISTRIBUTION WIDTH 12.3 % (11.5-14.5)
[2017-09-09 21:43] LABS: ADD UMIC YES; UR ASCORBIC ACID NEGATIVE (NEGATIVE); UR BACTERIA MODERATE /HPF (NONE SEEN); UR BILIRUBIN (Dip) NEGATIVE (NEGATIVE); UR BLOOD (Dip) NEGATIVE (NEGATIVE); UR CLARITY CLEAR (CLEAR); UR COLOR STRAW (YELLOW); UR GLUCOSE (Dip) NEGATIVE (NEGATIVE); UR KETONES (Dip) NEGATIVE (NEGATIVE); UR LEUKOCYTE ESTERASE (Dip) 2+ Leu/ul (NEGATIVE); UR NITRITE (Dip) NEGATIVE (NEGATIVE); UR RBC 1 /HPF (0-5); UR SPECIFIC GRAVITY (Dip) 1.009 (1.003-1.030); UR SQUAMOUS EPITHELIAL CELL FEW /HPF (FEW); UR TOTAL PROTEIN (Dip) NEGATIVE (NEGATIVE); UR UROBILINOGEN (Dip) NEGATIVE (NEGATIVE)
[2017-09-09] MEDS ORDERED: CEFTRIAXONE 1 GM/50 ML (PMX) 50 ML IVPB ONE (22:30)
[2017-09-09] MEDS ORDERED: SOD CHLORIDE 0.9% 1,000 ML IV SCH (22:31)
--- NOTE | 2017-09-09 23:32 | RADRPT ---
PROCEDURE: Renal US. CLINICAL INDICATION: Pain. TECHNIQUE: Multiple sonographic images of the kidneys and urinary bladder were obtained. The imag es were reviewed on a PACS workstation. COMPARISON: No prior studies are available for comparison. FINDINGS: The kidneys are well visualized. The right kidney measures 12.1 cm. There is mild right hydronephros is. The left kidney measures 12.1 cm. There is no left hydronephrosis. There are no focal areas of a bnormal echogenicity. The urinary bladder is normal in appearance. IMPRESSION: 1. Mild right hydronephrosis. 2. Normal appearance of the left kidney and urinary bladder. RPTAT: HTAR .Moi Turner MD, Date Time Electronically viewed and signed by .Moi Turner MD, on 09/09/2017 23:32 .R/
--- NOTE | 2017-09-10 00:50 | TRIAGE ---
OB Triage Datetime Report Generated by CPN: 09/10/2017 00:49 Datetime: 09/10/2017 00:09 Stage of : OB Triage Datetime: 09/10/2017 00:05 Stage of : OB Triage Datetime: 09/09/2017 23:56 Pain Assessment Pain Scale: 0 Pain Presence: None/Denies Pain Type: N/A Pain Relief Measures: Comfort Measures Datetime: 09/09/2017 23:45 Stage of : OB Triage Datetime: 09/09/2017 23:30 Labor Evaluation Frequency: IRREGULAR Monitor Mode: External Duration (sec)2399: 100 Quality: Mild Pattern: Normal: <= 5 Contractions in 10 Minutes Resting Tone [place]: Relaxed Heart Rate FHR Baseline Rate: 135 Monitor Mode: External US FHR Baseline Changes: No Baseline Change Variability: Moderate 6-25 bpm Accelerations: 15X15 Decelerations: None Category: Category I Datetime: 09/09/2017 23:28 FHR Baseline Changes: Return to Previous Baseline Datetime: 09/09/2017 22:30 Labor Evaluation Frequency: IRREGULAR Monitor Mode: External Duration (sec)2399: 80-100 Quality: Mild Pattern: Normal: <= 5 Contractions in 10 Minutes Resting Tone [place]: Relaxed Heart Rate FHR Baseline Rate: 125 Monitor Mode: External US FHR Baseline Changes: No Baseline Change Variability: Moderate 6-25 bpm Accelerations: 15X15 Decelerations: None Category: Category I Datetime: 09/09/2017 21:30 Labor Evaluation Frequency: IRREGULAR Monitor Mode: External Duration (sec)2399: 60 Quality: Mild Pattern: Normal: <= 5 Contractions in 10 Minutes Resting Tone [place]: Relaxed Heart Rate FHR Baseline Rate: 145 Monitor Mode: External US FHR Baseline Changes: No Baseline Change Variability: Moderate 6-25 bpm Accelerations: 15X15 Decelerations: None Category: Category I Datetime: 09/09/2017 20:51 Vaginal Exam Dilatation (cms): 0.0 Effacement (%): 0 Station: -3 Exam By: Apple OROZCO RN Vaginal Bleeding: None Cervix, Consistency: Firm Cervix, Position: Posterior Datetime: 09/09/2017 20:30 Labor Evaluation Frequency: 0 Monitor Mode: External Heart Rate FHR Baseline Rate: 125 Monitor Mode: External US FHR Baseline Changes: No Baseline Change Variability: Moderate 6-25 bpm Accelerations: 15X15 Decelerations: None Category: Category I Datetime: 09/09/2017 19:51 Stage of : OB Triage Time of Arrival: 09/09/2017 19:30 EGA: 34.6 Arrived By: Wheelchair Arrived From: Home Chief Complaint: C/O BACK PAIN RT FLANK PAIN/ HIP PAIN X2 WKS/ LT THUMB NO FEELING SINCE 0800 TOD AY Movement: Present Contractions: Denies/Absent Rupture of Membranes: Denies Vaginal Bleeding: None Vaginal Discharge: Denies Recent Sexual Intercouse: Denies Abdominal Trauma: Not Applicable Patient Complaints: None Time Provider Notified: 09/09/2017 20:19 Provider Notified: DR ROMO Initial Plan: CALL SYBIL LARSEN Maternal Assessment Level of Consciousness: Fully Conscious DTR's/Clonus: DTRs 2+; No Clonus Headache: Denies Blurred Vision: No Respiratory Effort: Unlabored; Regular Rhythm; Equal Expansion Breath Sounds, Left: Clear and Equal Breath Sounds, Right: Clear and Equal Nausea/Vomiting: Denies RUQ Epigastric Pain: Denies Lower Extremities Edema: Bilateral Lower Extremities Degree: 1+ Upper Extremities Edema: None Degree: None Facial Edema: None Temperature Route: Oral Fall Risk Assessment History of Falling: (0) No Secondary Diagnosis: (0) No Ambulatory Aid: (0) Bedrest/Nurse Assist IV Therapy: (0) No Gait: (0) Normal/Bedrest/Immobile Mental Status: (0) Oriented to Own Ability Fall Score: 0 Fall Risk Score Definition: No Risk: No action required Monitor Mode: External Monitor Mode: External US Pain Assessment Pain Scale: 7 Pain Presence: Intermittent Datetime: 08/06/2017 19:16 Vaginal Bleeding: None Vaginal Discharge: Denies Recent Sexual Intercouse: Denies Datetime: 08/06/2017 12:02 Fall Score: 0 Fall Risk Score Definition: No Risk: No action required Datetime: 08/06/2017 12:01 EGA: 30.0 Datetime: 08/01/2017 13:38 Fall Score: 0 Fall Risk Score Definition: No Risk: No action required Datetime: 07/19/2017 18:53 EGA: 29.2 Datetime: 07/19/2017 07:28 Fall Score: 20 Fall Risk Score Definition: No Risk: No action required Datetime: 07/18/2017 19:32 Fall Score: 0 Fall Risk Score Definition: No Risk: No action required Datetime: 07/18/2017 07:40 Fall Score: 0 Fall Risk Score Definition: No Risk: No action required Datetime: 07/17/2017 21:35 Fall Score: 20 Fall Risk Score Definition: No Risk: No action required Datetime: 07/17/2017 21:17 EGA: 27.1 Datetime: 07/17/2017 19:34 Fall Score: 0 Fall Risk Score Definition: No Risk: No action required Datetime: 07/17/2017 16:34 Fall Score: 0 Fall Risk Score Definition: No Risk: No action required Datetime: 07/17/2017 16:27 EGA: 27.1 Datetime: 07/10/2017 10:44 EGA: 26.1 Fall Score: 0 Fall Risk Score Definition: No Risk: No action required
--- NOTE | 2017-09-10 05:21 | PN ---
Triage Information Date/Time 09/10/17 Reason for visit: back pain rt flank pain and hip pain Weeks of Gestation 34w /Para Diabetes: none Hypertention: none Objective Vital Signs Date Time Temp Pulse Resp B/P Pulse Ox O2 Delivery O2 Flow Rate FiO2 09/09/17 19:59 98.7 77 18 113/63 Room Air Intake and Output 09/09/17 09/09/17 09/10/17 15:00 23:00 07:00 Intake Total 175 ml Balance 175 ml Heart Rate: 130's Contractions: None Exam VE closed/long /-3 Rt CVA ? tenderness Results/Medications Result Diagram: 09/09/172039 Results 24 hrs Laboratory Tests Test 09/09/17 20:40 White Blood Count 14.0 H Red Blood Count 4.03 L Hemoglobin 11.7 L Hematocrit 35.1 L Mean Corpuscular Volume 87.1 Mean Corpuscular Hemoglobin 29.0 Mean Corpuscular Hemoglobin Concent 33.3 Red Cell Distribution Width 12.3 Platelet Count 213 Mean Platelet Volume 10.6 H Neutrophils % 63.6 Lymphocytes % 26.0 Monocytes % 6.4 Eosinophils % 3.0 Basophils % 0.4 Nucleated Red Blood Cells % 0.0 Neutrophils # 8.9 H Lymphocytes # 3.6 H Monocytes # 0.9 Eosinophils # 0.4 Basophils # 0.1 Nucleated Red Blood Cells # 0.0 Urine Color STRAW Urine Clarity CLEAR Urine pH 7.0 Urine Specific [place] 1.009 Urine Ketones NEGATIVE Urine Nitrite NEGATIVE Urine Bilirubin NEGATIVE Urine Urobilinogen NEGATIVE Urine Leukocyte Esterase 2+ H Urine Microscopic RBC 1 Urine Microscopic WBC 10 H Urine Squamous Epithelial Cells FEW Urine Bacteria MODERATE Urine Hemoglobin NEGATIVE Urine Glucose NEGATIVE Urine Total Protein NEGATIVE Medications IV hydration rocephin 1gm Imaging Results kidney mild hydronephrosis Disposition: Discharge Assessment/Plan [id number] Rt flank pain and hip pain , resolved Plan discharge with routine labor inastructions f/u at her OB clinic OLINDA MCCOLLUM MD Sep 10, 2017 05:21
== END 2017-09-10 00:15 | disposition home or self-care (01) ==
LOC: OBT 19:36 → L-D 19:37 → OBT 09-10 00:15
PROVIDERS: ATTEND Obstetrics & Gynecology
DX: O26.893 Other specified pregnancy related conditions, third trimester (principal); M25.551 Pain in right hip; R10.9 Unspecified abdominal pain; Z3A.34 34 weeks gestation of pregnancy
CPT/HCPCS: 36415; 76775; 81001; 85025; 87086; 96374; J0696; J7030; Z7500; G0463

== ENCOUNTER 2017-09-14 18:45 | Outpatient (CLI) | payer OTHER ==
[~2017-09-14] VITALS: Ht 165.1 cm; Wt 65.3 kg
[2017-09-14 19:04] VITALS: BMI 23.9
[2017-09-14 19:06] VITALS: BP 130/79; PULSE 82; RESP 20
[2017-09-14 19:07] VITALS: Ht 165.1 cm; Wt 65.3 kg
[2017-09-14 19:17] LABS: ADD UMIC YES; UR ASCORBIC ACID NEGATIVE (NEGATIVE); UR BACTERIA MODERATE /HPF (NONE SEEN); UR BILIRUBIN (Dip) NEGATIVE (NEGATIVE); UR BLOOD (Dip) NEGATIVE (NEGATIVE); UR CLARITY SLIGHTLY CLOUDY (CLEAR); UR COLOR YELLOW (YELLOW); UR GLUCOSE (Dip) NEGATIVE (NEGATIVE); UR KETONES (Dip) NEGATIVE (NEGATIVE); UR LEUKOCYTE ESTERASE (Dip) 2+ Leu/ul (NEGATIVE); UR NITRITE (Dip) NEGATIVE (NEGATIVE); UR RBC 7 /HPF (0-5); UR SPECIFIC GRAVITY (Dip) 1.015 (1.003-1.030); UR SQUAMOUS EPITHELIAL CELL FEW /HPF (FEW); UR TOTAL PROTEIN (Dip) NEGATIVE (NEGATIVE); UR UROBILINOGEN (Dip) NEGATIVE (NEGATIVE)
--- NOTE | 2017-09-14 19:54 | PN ---
Triage Information Date/Time Reason for visit: Weeks of Gestation 35w 4d /Para Objective Vital Signs Date Time Temp Pulse Resp B/P Pulse Ox O2 Delivery O2 Flow Rate FiO2 09/14/17 19:06 98.7 82 20 130/79 99 Room Air Heart Rate Comments reactive Contractions: None Results/Medications Results 24 hrs Laboratory Tests Test 09/14/17 18:50 Urine Color YELLOW Urine Clarity SLIGHTLY CLOUDY A Urine pH 6.0 Urine Specific [place] 1.015 Urine Ketones NEGATIVE Urine Nitrite NEGATIVE Urine Bilirubin NEGATIVE Urine Urobilinogen NEGATIVE Urine Leukocyte Esterase 2+ H Urine Microscopic RBC 7 H Urine Microscopic WBC 16 H Urine Squamous Epithelial Cells FEW Urine Bacteria MODERATE Urine Hemoglobin NEGATIVE Urine Glucose NEGATIVE Urine Total Protein NEGATIVE Disposition: Discharge Assessment/Plan 22 y/o at 35w 4d with hand numbness -discharge home -f/u with OB -further evaluation after delivery RITA WHEAT Sep 14, 2017 19:54
--- NOTE | 2017-09-14 23:26 | TRIAGE ---
OB Triage Datetime Report Generated by CPN: 09/14/2017 23:25 Datetime: 09/14/2017 19:36 Stage of : OB Triage Labor Evaluation Frequency: x2 Monitor Mode: External Duration (sec)2399: 100-130 Quality: Mild Resting Tone [place]: Relaxed Heart Rate FHR Baseline Rate: 135 Monitor Mode: External US Variability: Moderate 6-25 bpm Accelerations: 15X15 Decelerations: None Category: Category I Datetime: 09/14/2017 19:21 Time of Arrival: 09/14/2017 18:40 EGA: 35.4 Arrived By: Ambulatory Arrived From: Home Chief Complaint: THUMB NUMBNESS Movement: Present Contractions: Denies/Absent Rupture of Membranes: Denies Vaginal Bleeding: None Vaginal Discharge: Denies Recent Sexual Intercouse: Denies Abdominal Trauma: Not Applicable Patient Complaints: None Time Provider Notified: 09/14/2017 18:52 Provider Notified: DRCarol CANTUAD Datetime: 09/14/2017 19:19 Labor Evaluation Frequency: 0 Monitor Mode: External Duration (sec)2399: 0 Resting Tone [place]: Relaxed Contraction Comments: PT DENIES UC'S Heart Rate FHR Baseline Rate: 140 Monitor Mode: External US Variability: Moderate 6-25 bpm Accelerations: 15X15 Decelerations: None Category: Category I Datetime: 09/14/2017 19:00 Stage of : OB Triage Assessment Type: Triage Maternal Assessment Level of Consciousness: Fully Conscious DTR's/Clonus: DTRs 2+; No Clonus Headache: Denies Blurred Vision: No Respiratory Effort: Unlabored; Regular Rhythm; Equal Expansion Breath Sounds, Left: Clear and Equal Breath Sounds, Right: Clear and Equal Nausea/Vomiting: Denies RUQ Epigastric Pain: Denies Lower Extremities Edema: None Degree: None Upper Extremities Edema: None Degree: None Facial Edema: None Temperature Route: Axillary Fall Risk Assessment History of Falling: (0) No Secondary Diagnosis: (0) No Ambulatory Aid: (0) Bedrest/Nurse Assist IV Therapy: (0) No Gait: (0) Normal/Bedrest/Immobile Mental Status: (0) Oriented to Own Ability Fall Score: 0 Fall Risk Score Definition: No Risk: No action required Datetime: 09/09/2017 19:51 EGA: 34.6 Fall Score: 0 Fall Risk Score Definition: No Risk: No action required Datetime: 08/06/2017 12:02 Fall Score: 0 Fall Risk Score Definition: No Risk: No action required Datetime: 08/06/2017 12:01 EGA: 30.0 Datetime: 08/01/2017 13:38 Fall Score: 0 Fall Risk Score Definition: No Risk: No action required Datetime: 07/19/2017 18:53 EGA: 29.2 Datetime: 07/19/2017 07:28 Fall Score: 20 Fall Risk Score Definition: No Risk: No action required Datetime: 07/18/2017 19:32 Fall Score: 0 Fall Risk Score Definition: No Risk: No action required Datetime: 07/18/2017 07:40 Fall Score: 0 Fall Risk Score Definition: No Risk: No action required Datetime: 07/17/2017 21:35 Fall Score: 20 Fall Risk Score Definition: No Risk: No action required Datetime: 07/17/2017 21:17 EGA: 27.1 Datetime: 07/17/2017 19:34 Fall Score: 0 Fall Risk Score Definition: No Risk: No action required Datetime: 07/17/2017 16:34 Fall Score: 0 Fall Risk Score Definition: No Risk: No action required Datetime: 07/17/2017 16:27 EGA: 27.1 Datetime: 07/10/2017 10:44 EGA: 26.1 Fall Score: 0 Fall Risk Score Definition: No Risk: No action required
== END 2017-09-14 19:55 | disposition home or self-care (01) ==
LOC: OBT 18:45 → L-D 18:47 → OBT 19:55
PROVIDERS: ATTEND Obstetrics & Gynecology
DX: O26.893 Other specified pregnancy related conditions, third trimester (principal); Z3A.35 35 weeks gestation of pregnancy; R20.0 Anesthesia of skin
CPT/HCPCS: 81001; Z7500; G0463

== ENCOUNTER 2017-10-01 18:17 | Inpatient (IN) | payer OTHER ==
[~2017-10-01] VITALS: Ht 165.1 cm; Wt 68.2 kg
[2017-10-01 18:34] VITALS: BP 123/74; PULSE 80; Ht 165.1 cm; Wt 68.2 kg
--- NOTE | 2017-10-01 19:39 | RADRPT ---
PROCEDURE: US OB. CLINICAL INDICATION: , size versus dates. TECHNIQUE: Multiple sonographic images of the pelvis were obtained. Transabdominal imaging only w as performed. The images were reviewed on a PACS workstation. COMPARISON: No prior studies are available for comparison. FINDINGS: There is a single viable intrauterine gestation. Cardiac activity is present with 146 beats per minute. There is a cephalic presentation. Measurements were made in order to determine age. The results are as follows: BPD = 8.59 cm HC = 31.24 cm AC = 31.41 cm FL = 6.85 cm Estimated gestational age of approximately 35 weeks 0 days. The estimated date of delivery is 11/05/2017. The EFW = 2614 g. EFW percentile: 6.5% The placenta is posterior, grade 2. There is no evidence for an abruption or placenta previa. There is an adequate amount of amniotic fluid. IMPRESSION: 1. Single viable intrauterine gestation of approximately 35 weeks 0 days, based on ultrasound measu rements. The estimated date of delivery is 11/05/2017. 2. EFW percentile: 6.5%. RPTAT: HTAR .Moi Turner MD, Date Time Electronically viewed and signed by .Moi Turner MD, on 10/01/2017 19:38 .R/
--- NOTE | 2017-10-01 19:41 | RADRPT ---
PROCEDURE: US biophysical profile. CLINICAL INDICATION: , size versus dates TECHNIQUE: Multiple sonographic images of the uterus were obtained. The images were revi ewed on a PACS workstation. COMPARISON: No prior studies are available for comparison. FINDINGS: There is a single live intrauterine gestation. heart rate is 144 beats per minute. The position is cephalic. The placenta is a posterior grade II. The KAYLI is 16.4 cm. (Normal = 5-20 cm.) Breathing Movement: 2 Gross Body Movement: 2 Tone: 2 Qualitative Amniotic Fluid Volume: 2 TOTAL: 8 IMPRESSION: 1. The biophysical score is 8/8. 2. The KAYLI = 16.4 cm RPTAT: UU .Reji Amaral MD, Date Time Electronically viewed and signed by .Reji Amaral MD, on 10/01/2017 19:41 .K/
[2017-10-02] MEDS: LACTATED RINGER'S 1,000 ML IV SCH ×4 (00:38→19:49)
[2017-10-02 00:56] LABS: BASOPHIL # 0.1 10^3/ul (0.0-0.1); BASOPHILS % 0.4 % (0.0-2.0); EOSINOPHILS # 0.3 10^3/ul (0.0-0.5); EOSINOPHILS % 2.2 % (0.0-7.0); HEMATOCRIT 33.5 % (37.0-47.0); HEMOGLOBIN 11.3 g/dl (12.0-16.0); LYMPHOCYTES # 4.4 10^3/ul (0.8-2.9); LYMPHOCYTES % 31.8 % (15.0-51.0); MEAN CORPUSCULAR HGB CONC 33.7 g/dl (32.0-37.0); MEAN CORPUSCULAR VOLUME 86.1 fl (82.0-101.0); MEAN PLATELET VOLUME 10.9 fl (7.4-10.4); MONOCYTE # 1.1 10^3/ul (0.3-0.9); MONOCYTES % 7.6 % (0.0-11.0); NEUTROPHILS % 57.3 % (39.0-77.0); PLATELET COUNT 207 10^3/UL (140-415); RED BLOOD COUNT 3.89 10^6/ul (4.20-5.40); RED CELL DISTRIBUTION WIDTH 12.8 % (11.5-14.5)
[2017-10-02] MEDS ORDERED: OXYTOCIN 30 UNITS/LR 500 ML IV PRN (01:00)
[2017-10-02] MEDS ORDERED: CARBOPROST 250 MCG INJ IM PRN (01:00)
[2017-10-02] MEDS ORDERED: LIDOCAINE 1% (MPF) 30 ML INJ INJ PRN ×2 (01:00→03:00)
[2017-10-02] MEDS ORDERED: MISOPROSTOL 200 MCG TAB PR PRN (01:00)
[2017-10-02] MEDS ORDERED: METHYLERGONOVINE 0.2 MG INJ IM PRN (01:00)
[2017-10-02 01:20] LABS: INR 0.83; PARTIAL THROMBOPLASTIN TIME 25.1 Sec (25.0-35.0); PROTIME 11.5 Sec (11.9-14.9); PT RATIO 0.9
--- NOTE | 2017-10-02 02:25 | PN ---
Triage Information Date/Time Oct 01, 2017 at 23:20 Reason for visit: NST, BPP for R/O SGA Weeks of Gestation 38 wks /Para G1 Diabetes: none Hypertention: none Additional information 22 Year-old G1 with SIUP at 38 wks presents for NST and BPP. She has been receiving her care with Dr. Lawson. She states good movement. She denies nausea, vomiting, shortness of breath, chest pain, abdominal pain, contractions, headache, visual changes, vaginal bleeding or LOF. Objective Vital Signs Date Time Temp Pulse Resp B/P Pulse Ox O2 Delivery O2 Flow Rate FiO2 10/01/17 18:34 98.2 80 123/74 Heart Rate: 140's Contractions: >10 Minutes Apart Exam General: Patient appears well, alert and oriented, NAD, appropriate mood and affect ABD: gravid, soft, non-tender. Back: No CVA tenderness (B/L) LE: No clubbing, cyanosis, edema, thigh or calf tenderness bilaterally FHT: 140 bpm , moderate variability with acceleration, no deceleration-category I Contractions: Occasional Results/Medications Result Diagram: 10/02/17 0030 Results 24 hrs Laboratory Tests Test 10/02/17 00:30 White Blood Count 14.0 H Red Blood Count 3.89 L Hemoglobin 11.3 L Hematocrit 33.5 L Mean Corpuscular Volume 86.1 Mean Corpuscular Hemoglobin 29.0 Mean Corpuscular Hemoglobin Concent 33.7 Red Cell Distribution Width 12.8 Platelet Count 207 Mean Platelet Volume 10.9 H Neutrophils % 57.3 Lymphocytes % 31.8 Monocytes % 7.6 Eosinophils % 2.2 Basophils % 0.4 Nucleated Red Blood Cells % 0.0 Neutrophils # 8.0 H Lymphocytes # 4.4 H Monocytes # 1.1 H Eosinophils # 0.3 Basophils # 0.1 Nucleated Red Blood Cells # 0.0 Prothrombin Time 11.5 L Prothrombin Time Ratio 0.9 INR International Normalized Ratio 0.83 Activated Partial Thromboplast Time 25.1 Medications Current Medications Lactated Ringer's (Lr) 1,000 ml @ 125 mls/hr Q8H IV ; Start 10/02/17 at 00:38 Lidocaine 30 ml 30 ml ONCE PRN INJ EPISIOTOMY/TEARING; Start 10/02/17 at 01:00 Oxytocin/Lactated Ringer's 500 ml @ 0 mls/hr ONCE PRN IV For Hemorrhage Management; Start 10/02/17 at 01:00 Methylergonovine Maleate (Methergine) 0.2 mg ONCE PRN IM VAGINAL BLEEDING; Start 10/02/17 at 01:00 Carboprost Tromethamine (Hemabate) 250 mcg ONCE PRN IM VAGINAL BLEEDING; Start 10/02/17 at 01:00 Misoprostol (Cytotec) 1,000 mcg ONCE PRN ME VAGINAL BLEEDING; Start 10/02/17 at 01:00 Disposition: Discharge Assessment/Plan 22 Year-old G1 with SIUP at 38 wks presents for NST and BPP for R/O SGA. - FHR: No sign of metabolic acidosis- Category I - Continuous EFM, toco - Contractions: Occasional - US ordered, f/u with result - Symptoms and sign of labor, preeclampsia, kick count discussed with patient, she voiced understanding. All of her questions answered. - Patient was discharged home in stable condition with the appropriate discharge instructions provided. I would like patient to have close follow-up with her primary physician or outpatient clinic in 1-2 days or return to the ER for worsening symptoms or any other urgent concerns. SATYA ROBERTS Oct 02, 2017 02:25
--- NOTE | 2017-10-02 02:26 | TRIAGE ---
OB Triage Datetime Report Generated by CPN: 10/02/2017 02:23 Datetime: 10/02/2017 00:13 Assessment Type: Admission Assessment Vaginal Bleeding: None Maternal Assessment Level of Consciousness: Fully Conscious DTR's/Clonus: DTRs 2+; No Clonus Headache: Denies Blurred Vision: No Respiratory Effort: Unlabored; Regular Rhythm; Equal Expansion Breath Sounds, Left: Clear and Equal Breath Sounds, Right: Clear and Equal Nausea/Vomiting: Denies RUQ Epigastric Pain: Denies Lower Extremities Edema: None Degree: None Upper Extremities Edema: None Degree: None Facial Edema: None Fall Risk Assessment History of Falling: (0) No Secondary Diagnosis: (0) No Ambulatory Aid: (0) Bedrest/Nurse Assist IV Therapy: (0) No Gait: (0) Normal/Bedrest/Immobile Mental Status: (0) Oriented to Own Ability Pain Assessment Pain Scale: 4 Pain Presence: Intermittent Pain Type: Ache Pain Location: Back Pain Goal: 2 Datetime: 10/01/2017 22:59 Labor Evaluation Frequency: IRRITABILITY NOTED Monitor Mode: External Quality: Mild Pattern: Normal: <= 5 Contractions in 10 Minutes Resting Tone [place]: Relaxed Heart Rate FHR Baseline Rate: 135 Monitor Mode: External US FHR Baseline Changes: No Baseline Change Variability: Moderate 6-25 bpm Accelerations: 15X15 Decelerations: None Category: Category I Pain Assessment Pain Scale: 0 Pain Presence: None/Denies Datetime: 10/01/2017 22:02 Stage of : OB Triage Datetime: 10/01/2017 22:00 Labor Evaluation Frequency: IRREGULAR Monitor Mode: External Duration (sec)2399: 30-100 Quality: Mild Pattern: Normal: <= 5 Contractions in 10 Minutes Resting Tone [place]: Relaxed Heart Rate FHR Baseline Rate: 135 Monitor Mode: External US FHR Baseline Changes: No Baseline Change Variability: Moderate 6-25 bpm Accelerations: 15X15 Decelerations: None Category: Category I Datetime: 10/01/2017 21:00 Labor Evaluation Frequency: IRREGULAR Monitor Mode: External Duration (sec)2399: 30-100 Quality: Mild Pattern: Normal: <= 5 Contractions in 10 Minutes Resting Tone [place]: Relaxed Heart Rate FHR Baseline Rate: 135 Monitor Mode: External US FHR Baseline Changes: No Baseline Change Variability: Moderate 6-25 bpm Accelerations: 15X15 Decelerations: None Category: Category I Datetime: 10/01/2017 20:56 Pain Assessment Pain Scale: 0 Pain Presence: None/Denies Pain Goal: 0 Datetime: 10/01/2017 20:00 Labor Evaluation Frequency: IRREGULAR Monitor Mode: External Duration (sec)2399: 60-80 Quality: Mild Pattern: Normal: <= 5 Contractions in 10 Minutes Resting Tone [place]: Relaxed Heart Rate FHR Baseline Rate: 145 Monitor Mode: External US FHR Baseline Changes: No Baseline Change Variability: Moderate 6-25 bpm Accelerations: 15X15 Decelerations: None Category: Category I Pain Assessment Pain Scale: 0 Pain Presence: None/Denies Datetime: 10/01/2017 19:11 Assessment Type: Triage Maternal Assessment Level of Consciousness: Fully Conscious DTR's/Clonus: DTRs 2+; No Clonus Headache: Denies Blurred Vision: No Respiratory Effort: Unlabored; Regular Rhythm; Equal Expansion Breath Sounds, Left: Clear and Equal Breath Sounds, Right: Clear and Equal Nausea/Vomiting: Denies RUQ Epigastric Pain: Denies Lower Extremities Edema: Bilateral Lower Extremities Degree: 1+ Upper Extremities Edema: None Degree: None Facial Edema: None Fall Risk Assessment History of Falling: (0) No Secondary Diagnosis: (0) No Ambulatory Aid: (0) Bedrest/Nurse Assist IV Therapy: (0) No Gait: (0) Normal/Bedrest/Immobile Mental Status: (0) Oriented to Own Ability Fall Score: 0 Fall Risk Score Definition: No Risk: No action required Comment: REPORT RECEIVED FROM ZAC RN Datetime: 10/01/2017 19:10 Pain Assessment Pain Scale: 0 Pain Presence: None/Denies Datetime: 10/01/2017 18:30 Stage of : OB Triage Assessment Type: Triage Maternal Assessment Level of Consciousness: Fully Conscious DTR's/Clonus: DTRs 2+; No Clonus Headache: Denies Blurred Vision: No Respiratory Effort: Unlabored; Regular Rhythm; Equal Expansion Breath Sounds, Left: Clear and Equal Breath Sounds, Right: Clear and Equal Nausea/Vomiting: Denies RUQ Epigastric Pain: Denies Facial Edema: None Temperature Route: Axillary Fall Risk Assessment History of Falling: (0) No Secondary Diagnosis: (0) No Ambulatory Aid: (0) Bedrest/Nurse Assist IV Therapy: (0) No Gait: (0) Normal/Bedrest/Immobile Mental Status: (0) Oriented to Own Ability Fall Score: 0 Fall Risk Score Definition: No Risk: No action required Labor Evaluation Frequency: 0 Monitor Mode: External Pattern: Normal: <= 5 Contractions in 10 Minutes Resting Tone [place]: Relaxed Heart Rate FHR Baseline Rate: 135 Monitor Mode: External US Variability: Moderate 6-25 bpm Accelerations: None Decelerations: None Category: Category II Pain Assessment Pain Scale: 0 Pain Presence: None/Denies Pain Type: N/A Pain Goal: 3 Pain Relief Measures: Comfort Measures Datetime: 10/01/2017 18:27 Time of Arrival: 10/01/2017 18:27 EGA: 38.0 Arrived By: Ambulatory Arrived From: Office Chief Complaint: pt sent from drs office for nst, bpp for size/dates Movement: Present Contractions: Denies/Absent Rupture of Membranes: Denies Vaginal Bleeding: None Vaginal Discharge: Denies Recent Sexual Intercouse: Denies Patient Complaints: None Time Provider Notified: 10/02/2017 19:18 Provider Notified: DR ROBERTS Initial Plan: MONITOR, BPP/EFW Datetime: 09/14/2017 19:21 EGA: 35.4 Datetime: 09/14/2017 19:00 Fall Score: 0 Fall Risk Score Definition: No Risk: No action required Datetime: 09/09/2017 19:51 EGA: 34.6 Fall Score: 0 Fall Risk Score Definition: No Risk: No action required Datetime: 08/06/2017 12:02 Fall Score: 0 Fall Risk Score Definition: No Risk: No action required Datetime: 08/06/2017 12:01 EGA: 30.0 Datetime: 08/01/2017 13:38 Fall Score: 0 Fall Risk Score Definition: No Risk: No action required Datetime: 07/19/2017 18:53 EGA: 29.2 Datetime: 07/19/2017 07:28 Fall Score: 20 Fall Risk Score Definition: No Risk: No action required Datetime: 07/18/2017 19:32 Fall Score: 0 Fall Risk Score Definition: No Risk: No action required Datetime: 07/18/2017 07:40 Fall Score: 0 Fall Risk Score Definition: No Risk: No action required Datetime: 07/17/2017 21:35 Fall Score: 20 Fall Risk Score Definition: No Risk: No action required Datetime: 07/17/2017 21:17 EGA: 27.1 Datetime: 07/17/2017 19:34 Fall Score: 0 Fall Risk Score Definition: No Risk: No action required Datetime: 07/17/2017 16:34 Fall Score: 0 Fall Risk Score Definition: No Risk: No action required Datetime: 07/17/2017 16:27 EGA: 27.1 Datetime: 07/10/2017 10:44 EGA: 26.1 Fall Score: 0 Fall Risk Score Definition: No Risk: No action required
--- NOTE | 2017-10-02 02:31 | HP ---
Date/Time of Note Date/Time of Note DATE: 10/02/17 TIME: 02:25 OB - History Hx of Present Free Text/Dictation 22 Year-old G1 with SIUP at 38 wks presents for NST, BPP and R/O SGA. She has been receiving her care with Dr. Lawson. She states good movement. She denies nausea, vomiting, shortness of breath, chest pain, abdominal pain, contractions, headache, visual changes, vaginal bleeding or LOF. Chief Complaint: NST, BPP : 1 Care: Good Care Ultrasounds: Normal mid trimester US Obstetrical Complications: None Medical Complications: None Past Family/Social History * Past Medical, Surgical, Family and Obstetric Histories reviewed from chart. OB Admission Exam Vital Signs Vital Signs Vital Signs Date Time Temp Pulse Resp B/P Pulse Ox O2 Delivery O2 Flow Rate FiO2 10/01/17 18:34 98.2 80 123/74 Physical Exam HEENT: WNL Heart: Rhythm Normal Lungs: Clear Abdomen: WNL Extremities: Normal Membranes: Intact Heart Rate: 140's Accelerations: Accelerations Present Decelerations: No Decelerations Varibility: Moderate Last 72 hours Lab Results CBC & BMP 10/02/17 00:30 OB Assessment/Plan Other plan: 22 Year-old G1 with SIUP at 38 wks presents for NST and BPP for R/O SGA. US performed: KAYLI: 16.4, BPP: 8/8, G.age: 35 wks. pt admitted for close observation and perinatology consult - FHR: No sign of metabolic acidosis- Category I - Continious EFM, toco - NPO - Obtain PN record - CBC, blood type and screen - Perinatology consult - Please see the orders SATYA ROBERTS Oct 02, 2017 02:31
[2017-10-02] MEDS ORDERED: BUTORPHANOL 2 MG INJ IV PRN ×2 (03:00)
[2017-10-02] MEDS ORDERED: IBUPROFEN 600 MG TAB PO PRN (03:00)
[2017-10-02] MEDS ORDERED: OXYTOCIN 30 UNITS/LR 500 ML IV SCH (03:00)
[2017-10-02] MEDS ORDERED: HYDROCODONE/APAP (5/325) TAB PO PRN (03:00)
--- NOTE | 2017-10-02 12:37 | CONS ---
DATE OF ADMISSION: 10/01/2017 DATE OF CONSULTATION: BRIEF PERINATOLOGY CONSULT HISTORY OF PRESENT ILLNESS: The patient currently is at 38 weeks and 1 day with IUGR with estimated weight less than 10th percentile. ASSESSMENT: Given the gestational age and IUGR, delivery is recommended. Dictated By: CHRIS MONTANA/LILY Conf#: [id number] DID#: [id number]
[2017-10-02] MEDS ORDERED: MISOPROSTOL 25 MCG CAPSULE PO SCH (14:00)
[2017-10-02] MEDS ORDERED: MISOPROSTOL 25 MCG CAPSULE PO PRN (19:00)
--- NOTE | 2017-10-02 23:29 | HP ---
Date/Time of Note Date/Time of Note DATE: 10/02/17 TIME: 23:26 OB - History Hx of Present Chief Complaint: evaluation for size less than dates Estimated Due Date: Oct 15, 2017 : 1 Para: 0 Spontaneous : 0 Therapeutic : 0 Care: Good Care Ultrasounds: Normal mid trimester US Obstetrical Complications: None Medical Complications: None Past Family/Social History * Past Medical, Surgical, Family and Obstetric Histories reviewed from chart. GBS Status: Negative OB Admission Exam Vital Signs Vital Signs Vital Signs Date Time Temp Pulse Resp B/P Pulse Ox O2 Delivery O2 Flow Rate FiO2 10/01/17 18:34 98.2 80 123/74 Physical Exam HEENT: WNL Heart: Rhythm Normal Lungs: Clear, Equal Abdomen: WNL Extremities: Normal Reflexes: Normal Cervical Dilatation: None Effacement: 50% Station: -1 Membranes: Intact Heart Rate: 120's Accelerations: Accelerations Present Decelerations: No Decelerations Varibility: Moderate Last 72 hours Lab Results CBC & BMP 10/02/17 00:30 OB Assessment/Plan Reason for admission: induction of labor Other Assessment: IUGR Plan: Induction Induction Method: per Misoprostol Protocol KIERSTEN ROMO MD Oct 02, 2017 23:29
[2017-10-03] MEDS ORDERED: OXYTOCIN 30 UNITS/LR 500 ML IV SCH (03:00)
[2017-10-03] MEDS: LACTATED RINGER'S 1,000 ML IV SCH ×6 (04:34→23:04)
[2017-10-03] MEDS ORDERED: FENTAnyl 2MCG/ML-ROPIV 0.2% 100 ML ONE (12:38)
[2017-10-03] MEDS ORDERED: FENTAnyl 2MCG/ML-ROPIV 0.2% 100 ML BAG EPI SCH (14:30)
[2017-10-03] MEDS ORDERED: ONDANSETRON 4 MG INJ IV PRN (14:30)
[2017-10-03] MEDS ORDERED: DIPHENHYDRAMINE 50 MG INJ IV PRN (14:30)
[2017-10-03] MEDS ORDERED: NALOXONE (0.4 MG/ML) INJ IV PRN (14:30)
--- NOTE | 2017-10-04 01:53 | LDN ---
Date/Time of Note Date/Time of Note DATE: 10/04/17 TIME: 01:51 Delivery Summary 10/04/2017 Placenta Delivered: Spontaneously Meconium: none Episiotomy: No Perineal laceration: 1 Laceration repair: first degree bilateral labia and perineal laceration repaired using 3-0 chromic Anesthesia type: Epidural Estimated blood loss: 400 Sponge & Needle done & correct: Yes All needle counts correct: Yes Any foreign bodies felt in the: No Problems: Delivery Information Sex Infant Sex: male Apgars 1 Minute: 8 5 Minute: 8 Suctioning Nose & mouth suctioned at jose: Yes Delee suction performed: Yes Umbilical Cord Umbilical cord with: 3 Vessels Cord presentations: nuchal cord Nuchal cord present X: 2 Cord Blood was obtained: Yes BERKLEY VALENZUELA MD Oct 04, 2017 01:53
[2017-10-04] MEDS ORDERED: WITCH HAZEL/GLYCERIN PAD PR PRN (02:00)
[2017-10-04] MEDS ORDERED: HYDROCODONE/APAP (5/325) TAB PO PRN (02:00)
[2017-10-04] MEDS ORDERED: ZOLPIDEM 5 MG TAB PO PRN (02:00)
[2017-10-04] MEDS ORDERED: MISOPROSTOL 200 MCG TAB PR PRN (02:00)
[2017-10-04] MEDS ORDERED: DIPHENHYDRAMINE 25 MG CAP PO PRN (02:00)
[2017-10-04] MEDS ORDERED: METHYLERGONOVINE 0.2 MG INJ IM PRN (02:00)
[2017-10-04] MEDS ORDERED: ONDANSETRON 4 MG INJ IV PRN (02:00)
[2017-10-04] MEDS ORDERED: OXYTOCIN 30 UNITS/LR 500 ML IV PRN (02:00)
[2017-10-04] MEDS ORDERED: CARBOPROST 250 MCG INJ IM PRN (02:00)
[2017-10-04] MEDS ORDERED: LANOLIN 7 GM TUBE TOP PRN (02:00)
[2017-10-04 03:40] VITALS: BP 124/79; PULSE 73; RESP 18
[2017-10-04] MEDS: LACTATED RINGER'S 1,000 ML IV* SCH ×2 (04:58→12:01)
[2017-10-04] MEDS: IBUPROFEN 600 MG TAB PO SCH ×3 (06:00→17:38)
[2017-10-04 08:00] VITALS: BP 122/62; PULSE 67; RESP 20
[2017-10-04] MEDS: SENNA/DOCUSATE NA (8.6MG/50MG) TAB PO SCH ×2 (08:54→21:47)
[2017-10-04 10:08] LABS: HEMATOCRIT 30.7 % (37.0-47.0); HEMOGLOBIN 10.2 g/dl (12.0-16.0)
[2017-10-04 11:45] VITALS: BP 120/70; PULSE 70; RESP 18
[2017-10-04] MEDS ORDERED: INFLUENZA VIRUS VACCINE 0.5 ML SYG IM* ONE (12:00)
[2017-10-04 16:10] VITALS: BP 114/79; RESP 16
[2017-10-04 20:45] VITALS: BP 113/80; PULSE 81; RESP 17
[2017-10-05] MEDS: IBUPROFEN 600 MG TAB PO SCH ×5 (00:36→23:39)
[2017-10-05 03:57] VITALS: BP 102/54; PULSE 71; RESP 17
[2017-10-05 08:04] VITALS: BP 120/70; RESP 16
[2017-10-05] MEDS: SENNA/DOCUSATE NA (8.6MG/50MG) TAB PO SCH ×2 (09:43→21:02)
--- NOTE | 2017-10-05 11:03 | QN ---
Documentation Comment No complaint Afebrile VSS Fundus firm Lochia scant PPD #1 Stable Continue present care KIERSTEN ROMO MD Oct 05, 2017 11:03
[2017-10-05 12:59] LABS: BASOPHILS % 0.4 % (0.0-2.0); EOSINOPHILS # 0.2 10^3/ul (0.0-0.5); EOSINOPHILS % 1.5 % (0.0-7.0); HEMATOCRIT 29.2 % (37.0-47.0); HEMOGLOBIN 9.6 g/dl (12.0-16.0); LYMPHOCYTES # 2.6 10^3/ul (0.8-2.9); LYMPHOCYTES % 24.1 % (15.0-51.0); MEAN CORPUSCULAR HEMOGLOBIN 28.8 pg (29.0-33.0); MEAN CORPUSCULAR HGB CONC 32.9 g/dl (32.0-37.0); MEAN CORPUSCULAR VOLUME 87.7 fl (82.0-101.0); MEAN PLATELET VOLUME 10.9 fl (7.4-10.4); MONOCYTE # 0.7 10^3/ul (0.3-0.9); MONOCYTES % 6.7 % (0.0-11.0); NEUTROPHIL # 7.2 10^3/ul (1.6-7.5); NEUTROPHILS % 66.5 % (39.0-77.0); PLATELET COUNT 161 10^3/UL (140-415); RED BLOOD COUNT 3.33 10^6/ul (4.20-5.40); RED CELL DISTRIBUTION WIDTH 13.1 % (11.5-14.5); WHITE BLOOD COUNT 10.9 10^3/ul (4.8-10.8)
[2017-10-05 16:00] VITALS: BP 114/64; RESP 16
[2017-10-05 20:00] VITALS: BP 127/76; PULSE 70; RESP 21
[2017-10-06 03:50] VITALS: BP 123/76; PULSE 80; RESP 20
[2017-10-06] MEDS: IBUPROFEN 600 MG TAB PO SCH ×2 (05:43→12:00)
[2017-10-06 07:55] VITALS: BP 117/67; PULSE 63; RESP 16
[2017-10-06] MEDS ORDERED: DIPHTH/TET/ACEL PERTUSS (ADULT) 0.5 ML VIAL IM* ONE (09:00)
[2017-10-06] MEDS ORDERED: VARICELLA VACCINE LIVE/PF 1,350 UNIT/0.5 ML ML SC* ONE (09:00)
[2017-10-06] MEDS ORDERED: MEASLES,MUMPS,RUBELLA VACCINE INJ SC* ONE (09:00)
[2017-10-06] MEDS: SENNA/DOCUSATE NA (8.6MG/50MG) TAB PO SCH (09:48)
--- NOTE | 2017-10-06 13:55 | DS ---
Date/Time of Note Date/Time of Note DATE: 10/06/17 TIME: 13:54 Obstetrical Discharge Record Final Diagnosis Final Diagnosis: Term delivered Vaginal Delivery Obstetrical Delivery: Spontaneous Complications Other (IUGR) Condition on Discharge Physical Assessment Voiding: Yes Bowel Movement: Yes Breast: Soft, non-tender, Filling Fundus: Firm Calf Tenderness: No Patient Condition: Stable KIERSTEN ROMO MD Oct 06, 2017 13:55
== END 2017-10-06 16:19 | disposition home or self-care (01) | DRG 775 ==
LOC: OBT 18:17 → L-D 18:18 → OBT 23:20 → L-D 23:20 → PP1 10-04 03:37
PROVIDERS: ADMIT Obstetrics & Gynecology; ATTEND Obstetrics & Gynecology
PROC: 3E033VJ Introduction of Other Hormone into Peripheral Vein, Percutaneous Approach (ICD-10-PCS; 2017-10-02)
PROC: 10E0XZZ Delivery of Products of Conception, External Approach (ICD-10-PCS; principal; 2017-10-04)
PROC: 0HQ9XZZ Repair Perineum Skin, External Approach (ICD-10-PCS; 2017-10-04)
DX: O36.5930 Maternal care for other known or suspected poor fetal growth, third trimester, not applicable or unspecified (principal); O69.81X0 Labor and delivery complicated by cord around neck, without compression, not applicable or unspecified; O70.0 First degree perineal laceration during delivery; Z37.0 Single live birth; Z3A.38 38 weeks gestation of pregnancy
CPT/HCPCS: 62319; 76815; 76818; 85014; 85018; 85025; 85610; 85730; 86592; 86850; 86900; 86901; 87340; 90686; 90715; 90716; G0463; J0595; J2590; J3010; J7120

== ENCOUNTER 2018-07-08 17:27 | Emergency (ER) | END 2018-07-08 20:44 | disposition home or self-care (01) ==